=== PATIENT | female | born 1985 | race Caucasian/White ===

== ENCOUNTER 2018-11-23 20:52 | Emergency (ER) | payer OTHER, SELFPAY ==
[2018-11-23 20:53] VITALS: BP 145/90; PULSE 123; RESP 18; TEMP 37.7; O2SAT 96; BMI 33.5
--- NOTE | 2018-11-23 21:13 | ED.VISSUMM ---
- ER Visit Summary Date of Service: 11/23/18 Chief Complaint: [] Fever body aches cough flu symptoms History of Present Illness: The patient is a 33 F [] patient describes and reports by her history flu symptoms consisting of fever body aches and cough cough is generally dry nonproductive she had fevers that have been up and down, she is able to eat and drink slight sore throat her children have URI GI symptoms, she has no other past history of the hypothyroidism normal bowel habits and bladder habits except for some constipation denies presents today because the persistence of the fever and body aches Physical Examination: [] Is 99.9 she is in no distress complaining of whole body pain and aches, did not have flu vaccination this year General, no distress resting comfortably HEENT is generally unremarkable The neck is supple no adenopathy Cardiovascular, regular rate and rhythm Lungs, clear bilateral Abdomen, soft nontender Extremities, no clubbing cyanosis or edema Neurologic, awake alert answering questions appropriately moving all 4 extremities [place] she looks well she has no cough now her oral cavity and throat are normal she is eating and drinking well she appears well-hydrated I explained to her and her the above therapy generally consists of fever management aerosols fluids at home etc. which she is been taking she agrees to that plan so she is treated with DuoNeb, Toradol Tylenol will provide her with a Proventil inhaler here to use and to take home with her and to follow with her doctors the next few days continue instructions on flu sheet Test Results: [] Emergency Department Course and Treatment: [] Treatment Plan: [] Disposition: [] Home stable Impression: [] Flu type symptoms fever body aches harsh cough This note was generated with [employer] [place] dictation software. It may contain incorrect words, spelling, and punctuation that were not noted in review of the chart prior to signing ED Disposition - Plan for ED Patient: Chief Complaint: General Illness Referrals: Alea Galarza NP-C [Primary Care Provider] -
--- NOTE | 2018-11-23 21:15 | ED.DEP ---
ED Disposition - Plan for ED Patient: Chief Complaint: General Illness Instructions: ED Flu Referrals: Alea Galarza NP-C [Primary Care Provider] -
--- NOTE | 2018-11-23 21:16 | ED.DEP ---
ED Disposition - Plan for ED Patient: Chief Complaint: General Illness Instructions: ED Flu Referrals: Alea Galarza NP-C [Primary Care Provider] -
[2018-11-23] MEDS: Ipratropium/Albuterol Sulfate 3 ML AMPUL.NEB INHALATION (21:21)
[2018-11-23 21:25] VITALS: PULSE 106; RESP 16
[2018-11-23] MEDS: Acetaminophen 500 MG Tablet 1000 MG PO (21:30)
[2018-11-23] MEDS: Ketorolac 60 MG/2 ML Vial IM (21:30)
[2018-11-23 21:58] VITALS: PULSE 112; RESP 18; O2SAT 94
== END 2018-11-23 21:59 | disposition home or self-care (01) ==
LOC: ED 21:16
PROVIDERS: Emergency Provider Emergency Medicine; Family Provider Nurse Practitioner Family; PCP Nurse Practitioner Family
DX: R50.9 Fever, unspecified (principal); R05 Cough; M79.18 Myalgia, other site; E03.9 Hypothyroidism, unspecified; Z79.899 Other long term (current) drug therapy
CPT/HCPCS: 94640; 96372; 99282

== ENCOUNTER → 2020-05-04 | Outpatient (CLI) | payer OTHER, SELFPAY ==
[2020-05-04 14:09] VITALS: BMI 33.5
[2020-05-04 17:00] LABS: Basophil# 0.04 X10^3/uL; Basophil% 0.7 % (0-1); Eosinophil# 0.28 X10^3/uL; Hematocrit 42.2 % (37-47); Hemoglobin 13.8 g/dL (12.0-15.0); Lymphocyte % 32.2 % (19-41); Mean Corp Hgb Conc 32.7 g/dL (32-36); Mean Corpuscular Hgb 29.7 pg (27.0-32.0); Mean Corpuscular Volume 90.8 fL (81-99); Mean Platelet Vol. 11.2 fl (6.2-12.0); Monocyte# 0.46 X10^3/uL; Monocyte% 8.2 % (0-10); NRBC Flagged by Analyzer 0 % (0-5); Neutrophil # 3.01 X10^3/uL (2.7-7.7); Neutrophil % 53.9 % (47-70); Platelet Count 308 K/mm3 (150-450); RBC Distribution Width CV 13.1 % (11.6-14.6); RBC Distribution Width SD 42.7 fl (35.1-43.9); Red Blood Count 4.65 M/mm3 (4.2-5.4); White Blood Count 5.6 K/mm3 (4.4-11.0)
[2020-05-04 17:21] LABS: ALB/GLOB Ratio 0.9 RATIO (0.9-2.4); AST(SGOT) 16 U/L (15-37); Alanine Aminotransfer ALT/SGPT 24 U/L (13-56); Albumin, Serum 3.7 g/dL (3.2-5.0); Alkaline Phosphatase 78 U/L (45-117); Anion Gap 3 (5-15); BUN 11 mg/dL (7-18); BUN/Creat Ratio 11.5 RATIO (10-20); Calcium,Total 8.6 mg/dL (8.5-10.1); Chloride 108 mmol/L (98-107); Cholesterol 226 mg/dL (200); Creatinine, Serum 0.95 mg/dL (0.55-1.02); EST Glomerular Filtration Rate 71 mL/min (>60); Est Glom Filt Rate - Afr Amer 86 mL/min (>60); Globulin 4.2 g/dL (2.2-4.2); Glucose 83 mg/dL (74-106); High Density Lipoprotein 63 mg/dL; Magnesium 2.1 mg/dL (1.6-2.6); Potassium 4.2 mmol/L (3.5-5.1); Protein, Total 7.9 g/dL (6.4-8.2); Sodium Level 139 mmol/L (136-145); T4 Free Direct 0.75 ng/dL (0.76-1.46); Thyroid Stim Hormone (TSH) 2.38 uIU/mL (0.358-3.74); Triglycerides 115 mg/dL; Very Low Density Lipoprotein 23 mg/dL (5-40)
== END | disposition home or self-care (01) ==
LOC: BIMLAB 14:57
PROVIDERS: PCP Internal Medicine; Referring Provider Internal Medicine; Visit Provider Internal Medicine
DX: E03.9 Hypothyroidism, unspecified (principal); I49.9 Cardiac arrhythmia, unspecified; E66.9 Obesity, unspecified
CPT/HCPCS: 36415; 80053; 80061; 83735; 84439; 84443; 84482; 85025

== ENCOUNTER → 2020-05-24 | Outpatient (CLI) | payer OTHER, SELFPAY ==
[2020-05-04 14:09] VITALS: BMI 33.5
--- NOTE | 2020-05-24 11:37 | EKG12_ITS ---
Test Reason : 07489 Blood Pressure : / mmHG Vent. Rate : 073 BPM Atrial Rate : 073 BPM P-R Int : 138 ms QRS Dur : 080 ms QT Int : 388 ms P-R-T Axes : 035 064 038 degrees QTc Int : 427 ms Normal sinus rhythm Normal ECG Confirmed by HEATHER LEON ([id number]), food editor KARINA HIDALGO ([id number]) on 05/30/2020 8:26:15 AM Referred By: Juan Carlos Marcus Confirmed By:HEATHER LEON
== END | disposition home or self-care (01) ==
PROVIDERS: PCP Internal Medicine; Referring Provider Internal Medicine; Visit Provider Internal Medicine
DX: I49.9 Cardiac arrhythmia, unspecified (principal)
CPT/HCPCS: 93005

== ENCOUNTER → 2020-06-14 | Outpatient (CLI) | payer OTHER, SELFPAY ==
[2020-05-04 14:09] VITALS: BMI 33.5
== END | disposition home or self-care (01) ==
LOC: PSN 10:39
PROVIDERS: PCP Internal Medicine; Referring Provider Internal Medicine; Visit Provider Internal Medicine
DX: I49.9 Cardiac arrhythmia, unspecified (principal)
CPT/HCPCS: 93225; 93226

== ENCOUNTER → 2020-09-21 | Outpatient (CLI) | payer OTHER, SELFPAY ==
[2020-09-06 11:02] VITALS: BMI 35.9
--- NOTE | 2020-09-21 09:44 | ECHOD_ITS ---
Reason For Study: AFIB Procedure This was a 2D Doppler, Color Flow transthoracic echocardiogram. Exam performed in department. Left Ventricle Normal LV size. The estimated ejection fraction is 60 %. No evidence for diastolic dysfunction. No regional wall motion abnormalities noted. Right Ventricle Normal RV size. Normal systolic function. Atria Normal left atrium. Normal right atrium. No doppler evidence for ASD. Mitral Valve There is no mitral valve stenosis. No mitral valve insufficiency. Tricuspid Valve There is no tricuspid stenosis. Trivial tricuspid valve insufficiency. Pulmonary artery systolic pressure is 25 mmHg. Aortic Valve There is no aortic stenosis. No aortic valve insufficiency. Pulmonic Valve There is no pulmonic valvular stenosis. No pulmonic valve insufficiency. Great Vessels Normal aortic root. Pericardium/Pleural No pericardial effusion. MMode/2D Measurements & Calculations LVIDd: 4.0 cm IVSd: 0.87 cm Ao root diam: 3.1 cm LVIDs: 2.7 cm LVPWd: 1.00 cm FS: 33.4 % LAV(MOD-bp): 39.4 ml LA A4 area: 14.4 cm2 LA dimension(2D): 3.4 cm LAV(MOD-bp) Indexed: 19.9 ml/m2 LAV(MOD-sp2): 43.1 ml LAV(MOD-sp4): 35.2 ml RA A4 area: 11.7 cm2 Time Measurements MV dec time: 0.16 sec Doppler Measurements & Calculations MV E max harsha: 100.6 cm/sec Lat Peak E' Harsha: 17.6 cm/sec Med Peak E' Harsha: 11.9 cm/sec MV A max harsha: 64.4 cm/sec E/E' lat: 5.7 E/E' med: 8.5 MV E/A: 1.6 Ao V2 max: 133.8 cm/sec LV V1 max: 100.1 cm/sec PA V2 max: 106.7 cm/sec Ao max P.2 mmHg LV V1 max P.0 mmHg TR max harsha: 226.1 cm/sec TR max P.5 mmHg Interpretation Summary The estimated ejection fraction is 60 %. No evidence for diastolic dysfunction. Trivial tricuspid valve insufficiency. Ordering Physician: Raad Munguia Referring Physician: JOSE BELL Performed By: Luz Elena Willis RDCS, RVT
== END | disposition home or self-care (01) ==
LOC: CVS 09:44
PROVIDERS: PCP Internal Medicine; Referring Provider Internal Medicine Cardiovascular Disease; Visit Provider Internal Medicine Cardiovascular Disease
DX: I48.91 Unspecified atrial fibrillation (principal); I48.92 Unspecified atrial flutter; R00.2 Palpitations
CPT/HCPCS: 93306

== ENCOUNTER → 2020-11-07 15:41 | Outpatient (CLI) | payer OTHER, SELFPAY ==
[2020-11-07 14:29] VITALS: BMI 36.3
== END ==
PROVIDERS: PCP Internal Medicine; Referring Provider Specialist; Visit Provider Specialist
DX: R00.2 Palpitations (principal); R07.9 Chest pain, unspecified; R06.02 Shortness of breath
CPT/HCPCS: 36415

== ENCOUNTER → 2022-06-27 | Outpatient (CLI) | payer OTHER, SELFPAY ==
[2022-06-27 15:01] LABS: Absolute Lymphocyte Count 1.93 X10^3/uL (0.83-4.51); Absolute Neutrophil Count 2.4 X10^3/uL (2.0-7.7); Basophil# 0.02 X10^3/uL; Basophil% 0.4 % (0-1); Eosinophil# 0.13 X10^3/uL; Eosinophils% 2.6 % (0-5); Hematocrit 36.2 % (37-47); Hemoglobin 11.5 g/dL (12.0-15.0); Lymphocyte # 1.93 X10^3/ul (0.83-4.51); Lymphocyte % 38.3 % (19-41); Mean Corp Hgb Conc 31.8 g/dL (32-36); Mean Corpuscular Hgb 26.9 pg (27.0-32.0); Mean Corpuscular Volume 84.6 fL (81-99); Mean Platelet Vol. 11.2 fl (6.2-12.0); Monocyte# 0.52 X10^3/uL; Monocyte% 10.3 % (0-10); NRBC Flagged by Analyzer 0 % (0-5); Neutrophil # 2.43 X10^3/uL (2.7-7.7); Neutrophil % 48.2 % (47-70); Platelet Count 278 K/mm3 (150-450); RBC Distribution Width CV 15.3 % (11.6-14.6); RBC Distribution Width SD 46.3 fl (35.1-43.9); Red Blood Count 4.28 M/mm3 (4.2-5.4)
[2022-06-27 15:22] LABS: Insulin 5.3 mU/L (2.6-37.6)
[2022-06-27 15:43] LABS: ALB/GLOB Ratio 0.9 RATIO (0.9-2.4); AST(SGOT) 12 U/L (15-37); Alanine Aminotransfer ALT/SGPT 14 U/L (13-56); Albumin, Serum 3.7 g/dL (3.2-5.0); Alkaline Phosphatase 70 U/L (45-117); Anion Gap 6 (5-15); BUN 8 mg/dL (7-18); BUN/Creat Ratio 8.3 RATIO (10-20); Calcium,Total 8.8 mg/dL (8.5-10.1); Chloride 106 mmol/L (98-107); Cholesterol 210 mg/dL (200); Creatinine, Serum 0.96 mg/dL (0.55-1.02); EST Glomerular Filtration Rate 69 mL/min (>60); Est Glom Filt Rate - Afr Amer 84 mL/min (>60); Free T3 3.8 pg/mL (2.18-3.98); Globulin 4.2 g/dL (2.2-4.2); Glucose 81 mg/dL (74-106); High Density Lipoprotein 55 mg/dL; Potassium 3.5 mmol/L (3.5-5.1); Protein, Total 7.9 g/dL (6.4-8.2); Sodium Level 137 mmol/L (136-145); T4 Free Direct 0.87 ng/dL (0.76-1.46); Thyroid Stim Hormone (TSH) 2.62 uIU/mL (0.358-3.74); Triglycerides 78 mg/dL; Very Low Density Lipoprotein 16 mg/dL (5-40)
== END | disposition home or self-care (01) ==
LOC: LAB 13:35
PROVIDERS: PCP Internal Medicine; Visit Provider Internal Medicine
DX: E66.9 Obesity, unspecified (principal); E03.9 Hypothyroidism, unspecified; F41.8 Other specified anxiety disorders; E88.81 Metabolic syndrome and other insulin resistance
CPT/HCPCS: 36415; 80053; 80061; 83525; 84439; 84443; 84481; 85025

== ENCOUNTER → 2022-08-08 | Outpatient (CLI) | payer OTHER, SELFPAY ==
[2022-08-08 12:18] LABS: Vitamin B12 419 pg/mL (211-911)
[2022-08-08 12:27] LABS: Iron 28 ug/dL (50-170); Iron Binding Capacity,Total 431 ug/dL (250-450); PERCENT IRON SATURATION 6.5 % (15.0-55.0)
== END | disposition home or self-care (01) ==
LOC: LAB 10:29
PROVIDERS: PCP Internal Medicine; Referring Provider Internal Medicine; Visit Provider Internal Medicine
DX: D64.9 Anemia, unspecified (principal)
CPT/HCPCS: 36415; 82607; 82746; 83540; 83550

== ENCOUNTER → 2023-07-30 | Outpatient (CLI) | payer BC, SELFPAY ==
[2023-07-30 08:42] LABS: Absolute Lymphocyte Count 1.55 X10^3/uL (0.83-4.51); Absolute Neutrophil Count 2.2 X10^3/uL (2.0-7.7); Basophil# 0.03 X10^3/uL; Basophil% 0.7 % (0-1); Eosinophils% 4.4 % (0-5); Hematocrit 40.8 % (37-47); Lymphocyte # 1.55 X10^3/ul (0.83-4.51); Lymphocyte % 34.4 % (19-41); Mean Corp Hgb Conc 31.9 g/dL (32-36); Mean Corpuscular Hgb 28.4 pg (27.0-32.0); Mean Corpuscular Volume 89.3 fL (81-99); Mean Platelet Vol. 10.7 fl (6.2-12.0); Monocyte# 0.52 X10^3/uL; Monocyte% 11.6 % (0-10); NRBC Flagged by Analyzer 0 % (0-5); Neutrophil # 2.19 X10^3/uL (2.7-7.7); Neutrophil % 48.7 % (47-70); Platelet Count 282 K/mm3 (150-450); RBC Distribution Width CV 14.4 % (11.6-14.6); RBC Distribution Width SD 47.3 fl (35.1-43.9); Red Blood Count 4.57 M/mm3 (4.2-5.4); White Blood Count 4.5 K/mm3 (4.4-11.0)
[2023-07-30 09:14] LABS: Progesterone Level 6.56 ng/mL (See Comment); Vitamin D,25 Hydroxy 49.4 ng/mL
[2023-07-30 10:17] LABS: ALB/GLOB Ratio 0.9 RATIO (0.9-2.4); AST(SGOT) 24 U/L (15-37); Alanine Aminotransfer ALT/SGPT 41 U/L (13-56); Albumin, Serum 3.6 g/dL (3.2-5.0); Alkaline Phosphatase 81 U/L (45-117); Anion Gap 5 (5-15); BUN 10 mg/dL (7-18); BUN/Creat Ratio 10.7 RATIO (10-20); Calcium,Total 8.8 mg/dL (8.5-10.1); Chloride 106 mmol/L (98-107); Creatinine, Serum 0.93 mg/dL (0.55-1.02); EST Glomerular Filtration Rate 72 mL/min (>60); Est Glom Filt Rate - Afr Amer 87 mL/min (>60); Free T3 4.3 pg/mL (2.18-3.98); Glucose 97 mg/dL (74-106); Protein, Total 7.6 g/dL (6.4-8.2); Sodium Level 138 mmol/L (136-145); T4 Free Direct 0.77 ng/dL (0.76-1.46); Thyroid Stim Hormone (TSH) 7.21 uIU/mL (0.358-3.74)
[2023-07-31 04:08] LABS: Thyroid Peroxidase AB 136 IU/mL (0-34)
== END | disposition home or self-care (01) ==
PROVIDERS: PCP Internal Medicine; Referring Provider Preventive Medicine Public Health & General Preventive Medicine; Visit Provider Preventive Medicine Public Health & General Preventive Medicine
DX: E03.9 Hypothyroidism, unspecified (principal); E55.9 Vitamin D deficiency, unspecified; N95.1 Menopausal and female climacteric states
CPT/HCPCS: 36415; 80053; 82306; 82533; 82670; 84144; 84403; 84439; 84443; 84481; 85025; 86376

== ENCOUNTER → 2023-11-06 | Outpatient (CLI) | payer BC, SELFPAY ==
[2023-11-06 10:10] LABS: Absolute Lymphocyte Count 1.49 X10^3/uL (0.83-4.51); Absolute Neutrophil Count 2.6 X10^3/uL (2.0-7.7); Basophil# 0.03 X10^3/uL; Basophil% 0.6 % (0-1); Eosinophil# 0.15 X10^3/uL; Eosinophils% 3.2 % (0-5); Hematocrit 38.7 % (37-47); Hemoglobin 12.3 g/dL (12.0-15.0); Lymphocyte # 1.49 X10^3/ul (0.83-4.51); Lymphocyte % 31.6 % (19-41); Mean Corp Hgb Conc 31.8 g/dL (32-36); Mean Corpuscular Hgb 27.7 pg (27.0-32.0); Mean Corpuscular Volume 87.2 fL (81-99); Mean Platelet Vol. 10.3 fl (6.2-12.0); Monocyte# 0.48 X10^3/uL; Monocyte% 10.2 % (0-10); NRBC Flagged by Analyzer 0 % (0-5); Neutrophil # 2.56 X10^3/uL (2.7-7.7); Neutrophil % 54.2 % (47-70); Platelet Count 273 K/mm3 (150-450); RBC Distribution Width CV 14.8 % (11.6-14.6); RBC Distribution Width SD 47.4 fl (35.1-43.9); Red Blood Count 4.44 M/mm3 (4.2-5.4); White Blood Count 4.7 K/mm3 (4.4-11.0)
[2023-11-06 10:37] LABS: Vitamin B12 464 pg/mL (211-911); Vitamin D,25 Hydroxy 79.2 ng/mL
[2023-11-06 10:47] LABS: ALB/GLOB Ratio 0.8 RATIO (0.9-2.4); AST(SGOT) 24 U/L (15-37); Alanine Aminotransfer ALT/SGPT 32 U/L (13-56); Albumin, Serum 3.4 g/dL (3.2-5.0); Alkaline Phosphatase 66 U/L (45-117); Anion Gap 4 (5-15); BUN 11 mg/dL (7-18); BUN/Creat Ratio 13.3 RATIO (10-20); Calcium,Total 8.5 mg/dL (8.5-10.1); Chloride 107 mmol/L (98-107); Creatinine, Serum 0.83 mg/dL (0.55-1.02); EST Glomerular Filtration Rate 82 mL/min (>60); Est Glom Filt Rate - Afr Amer 99 mL/min (>60); Free T3 4.3 pg/mL (2.18-3.98); Globulin 4.1 g/dL (2.2-4.2); Glucose 93 mg/dL (74-106); Magnesium 2.1 mg/dL (1.6-2.6); Potassium 3.8 mmol/L (3.5-5.1); Protein, Total 7.5 g/dL (6.4-8.2); Sodium Level 137 mmol/L (136-145); T4 Free Direct 0.82 ng/dL (0.76-1.46); Thyroid Stim Hormone (TSH) 3.06 uIU/mL (0.358-3.74)
[2023-11-07 08:11] LABS: Thyroid Peroxidase AB 112 IU/mL (0-34)
== END | disposition home or self-care (01) ==
PROVIDERS: PCP Internal Medicine; Referring Provider Preventive Medicine Public Health & General Preventive Medicine; Visit Provider Preventive Medicine Public Health & General Preventive Medicine
DX: E03.9 Hypothyroidism, unspecified (principal); E53.8 Deficiency of other specified B group vitamins; E55.9 Vitamin D deficiency, unspecified; E61.1 Iron deficiency; E61.2 Magnesium deficiency; E61.3 Manganese deficiency; E56.1 Deficiency of vitamin K
CPT/HCPCS: 36415; 80053; 82306; 82607; 83735; 84439; 84443; 84481; 85025; 86376

== ENCOUNTER → 2023-11-20 | Outpatient (CLI) | payer BC, SELFPAY ==
--- NOTE | 2023-11-20 14:42 | US_ITS ---
EXAM: US SOFT TISSUES HEAD AND NECK, THYROID CLINICAL INDICATION: Thyroid nodule TECHNIQUE: Greyscale and color doppler imaging was performed of the thyroid gland. COMPARISON: No relevant prior studies available. FINDINGS: LEFT THYROID LOBE: The left thyroid lobe measures 5.2 x 1.6 x 1.4 cm and is diffusely heterogenous. Homogeneous echotexture with normal vascularity. No thyroid nodules are present. RIGHT THYROID LOBE: The right thyroid lobe measures 5.4 x 1.7 x 1.7 cm and is diffusely heterogenous. Homogeneous echotexture with normal vascularity. No thyroid nodules are present. ISTHMUS: The thyroid isthmus measures 0.4 cm. No thyroid nodules are present. LYMPH NODES: Normal central neck lymph nodes are identified. US/Thyroid IMPRESSION: No distinct thyroid nodules. Heterogenous thyroid and thyromegaly. Correlate clinically for evidence of thyroiditis. Electronically Signed: Jone Keane DO at 23:49 EST ,
== END | disposition home or self-care (01) ==
PROVIDERS: PCP Internal Medicine; Referring Provider Internal Medicine; Visit Provider Internal Medicine
DX: E03.9 Hypothyroidism, unspecified (principal); E06.3 Autoimmune thyroiditis
CPT/HCPCS: 76536

== ENCOUNTER → 2025-09-19 | Outpatient (CLI) | payer BC, SELFPAY ==
[2025-09-19 16:42] LABS: Hematocrit 39.8 % (37-47); Hemoglobin 12.8 g/dL (12.0-15.0); Immature Granulocytes Count 0.020 X10^3/uL (0.0-0.0); Mean Corp Hgb Conc 32.2 g/dL (32-36); Mean Corpuscular Volume 84.9 fL (81-99); Mean Platelet Vol. 10.7 fl (6.2-12.0); NRBC Flagged by Analyzer 0 % (0-5); Platelet Count 276 K/mm3 (150-450); RBC Distribution Width CV 15.2 % (11.6-14.6); RBC Distribution Width SD 47.0 fl (35.1-43.9); Red Blood Count 4.69 M/mm3 (4.2-5.4); White Blood Count 6.7 K/mm3 (4.4-11.0)
== END | disposition home or self-care (01) ==
LOC: LAB 16:03
PROVIDERS: PCP Internal Medicine; Referring Provider Obstetrics & Gynecology; Visit Provider Obstetrics & Gynecology
DX: N93.9 Abnormal uterine and vaginal bleeding, unspecified (principal)
CPT/HCPCS: 36415; 84443; 85025

== ENCOUNTER → 2025-10-05 | Outpatient (CLI) | payer BC, SELFPAY ==
--- NOTE | 2025-10-05 13:15 | EMB_PTH ---
PATIENT: GABRIELLA MADSEN LOC: [facility]#:[id number] AGE/SX: 40/F ROOM: RE10/05/[address]: Dr. Estephania Frost MD : 1985 BED: DIS: 10/05/2025 SPEC #: [id number] RECD: 10/05/25 16:55 STATUS: JESS REQ #: [id number] CMAERON: 10/05/25 13:[address]: Estephania Frost DEPT: SURGICAL PATHOLOGY RECD BY: Harris Winkler ENTERED: 10/06/25 11:37 SP TYPE: ENDOM BX/C NANO DR: Dr. Johanne Davidson MD Tissues: A - Endometrium, NOS Procedures: Surgery Specimen Level IV HEADER OPERATION: Endometrial biopsy PRE-OP DIAGNOSIS: Abnormal uterine bleeding TISSUE SUBMITTED: A- Endometrial tissue MICROSCOPIC DIAGNOSIS A. Endometrium, biopsy: - Secretory endometrium. MICROSCOPIC DESCRIPTION Slides are reviewed. GROSS DESCRIPTION A. Received in formalin labeled the patient's name and date of is a 2.4 x 1.3 x 0.2 cm aggregate of romero-pink cylindrical tissue fragments. Entirely submitted in 1 cassette. [place] 10/06/2025PT:[id number]
--- NOTE | 2025-10-05 14:06 | US_ITS ---
PROCEDURE: PELVIC W/ TRANSVAGINAL 10/05/2025 REASON FOR EXAM: ABNORMAL UTERINE BLEEDING TECHNIQUE: Procedure Code: [id number] Modality: US Procedure: PELVIC W/ TRANSVAGINAL FINDINGS: Uterus measures 10.5 x 6.7 x 5.1 cm. It is retroflexed position. No uterine fibroids are noted. Endometrial stripe measures 10 mm. It is hyperechoic. Nabothian cysts are noted. Right ovary measures 3.7 x 1.8 x 1.8 cm and left ovary measures 4.6 x 2.8 x 2.5 cm. There is normal bilateral symmetrical blood flow within bilateral ovaries. Left ovarian hemorrhagic/corpus luteal cyst measuring 2.3 x 2.2 x 2.1 cm. No significant free fluid within the cul-de-sac. US/Pelvic w/ Transvaginal IMPRESSION: Left ovarian hemorrhagic/corpus luteal cyst measuring 2.3 x 2.2 x 2.1 cm. No a cute ovarian torsion during this exam. Thickened endometrium with likely blood product within Reading Location: [id number]
[2025-10-11 16:09] LABS: HPV APTIMA, High Risk Negative (Negative)
== END | disposition home or self-care (01) ==
PROVIDERS: PCP Internal Medicine; Referring Provider Obstetrics & Gynecology; Visit Provider Obstetrics & Gynecology
DX: N93.9 Abnormal uterine and vaginal bleeding, unspecified (principal)
CPT/HCPCS: 76830; 76856; 87624; 88175; 88305; G0145

== ENCOUNTER 2025-11-03 06:03 | Day surgery (SDC) | payer BC, SELFPAY ==
--- NOTE | 2025-10-20 13:35 | PAT.ANE_ITS ---
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 When Was Last Pacemaker Check QUESTION #4 FULL TEXT: You/Your Family Experience fever (hyperthermia) with Anesthesia Last Oral Intake Last Oral intake: Last Oral Intake NPO since Meds taken in AM with sips of water? 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 Female Yes 10/20/25 09:58 HX of Motion Sickness Yes 10/20/25 09:58 HX of N/V After Surgery Yes 10/20/25 09:58 Non-Smoker Yes 10/20/25 09:58 Duration of Surgery greater Yes 10/20/25 09:58 than 60 minutes Number of Risk Factors 5 10/20/25 09:58 PONV Score Severe Risk 10/20/25 09:58 Height & Weight Height & Weight: Anesthesia: Height & Weight Height 5 ft 4 in 09/19/25 14:26 Respiratory Assessment Respiratory Assessment - adjunct communications faculty member: Respiratory Tract Infection Hx - adjunct communications faculty member Hx Respiratory Tract Infection No 10/20/25 09:58 STOP Sleep Apnea STOP Sleep Apnea - adjunct communications faculty member: STOP Sleep Apnea - adjunct communications faculty member Hx Hypertension No 10/20/25 09:58 Hx Sleep Apnea No 10/20/25 09:58 CPAP BIPAP Do you snore loudly (louder No 10/20/25 09:58 than talking or can be heard Do you often feel tired/ No 10/20/25 09:58 fatigued/ sleepy during daytime? Has anyone observed you stop No 10/20/25 09:58 breathing during sleep? STOP Results Negative 10/20/25 09:58 QUESTION #5 FULL TEXT : Do you snore loudly (louder than talking or can be heard through closed doors)? 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 Specify any problems Hx of Preganancy in last 3 No 10/20/25 09:58 Months Nurse Filling Out Transfusion JZOLLINGE 10/20/25 09:58 & Questions: Date: 10/20/25 10/20/25 09:58 Time: 09:59 10/20/25 09:58 Patient unable to answer at this time (ie. 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: /Reproductive Hx- adjunct communications faculty member Hx Now No 10/20/25 09:58 Gestational Age (in weeks): EDC: Hx Hx Para Hx Section SAB No 10/20/25 09:58 Does the father of the baby or his family experience fever w Father of the baby Malignant Hypertension history comment [facility] Medical History (Updated 10/20/25 @ 09:58 by Shara Medrano) Wears contact lenses Wears glasses Dietary restriction Non-smoker History of edema SVT (supraventricular tachycardia) Obesity (BMI 30.0-34.9) Hypothyroidism Venous insufficiency of both lower extremities Vitamin D deficiency Abnormal uterine bleeding [place] sclerosus et atrophicus Depression with anxiety Anxiety and depression Thyroid disorder Home Medications ?Medication ?Instructions ?Recorded ?Last Taken ?Type thyroid (pork) 15 mg tablet 15 mg PO DAILY #60 tabs Unknown Rx ([facility] Thyroid) NAD+ 100 mg subcut .3x week 10/20 Unknown History primal salcedo 1 tab PO BID 10/20/25 Unknow n History testosterone cypionate 100 mg/mL 4 mg IM QWEEK 5 Unknown History intramuscular oil Allergy/AdvReac Type Severity Reaction Status Date / Time Sulfa (Sulfonamide Allergy Mild rash , Verified 10/20/25 09:50 Antibiotics) short of breath Family History Mother Hypertension Histoplasmosis CVA (cerebral vascular accident) Depression Anxiety Hyperlipemia Father Heart disease Diabetes Thyroid disorder Brother Thyroid disorder Grandfather Aneurysm Heart disease Myocardial infarction Grandmother Hyperlipemia Thyroid disorder Arthritis Surgical History H/O hand surgery delivery delivered Social History number of children: 2 current occupational status: unemployed current occupation: [employer] Smoking Status: Never smoker alcohol intake: current alcohol intake frequency: holidays/special occasions only substance use type: does not use caffeine: Yes what type of physical activity do you participate in: running and weight train ing frequency: 3-4 times per week seatbelt use: always do you feel safe at home: Yes additional social history: [employer]: Pertinent Findings Pertinent Findings EKG Perinent findings: Sinus rhythm. 78 bpm. Echo (EF%) pertinent findings: 09/19/2020. EF 60%. Consult pertinent findings: Cardiology 08/08/2021. SVT. Patient had been referred to electrophysiology. At EP study patient had catheter ablation of slow pathway. EP follow-up 01/10/2025. For SVT. Continue resuming metoprolol or diltiazem. Recommendation Anesthesia Recommendation Anesthesia recommendation: OPTIMIZED for anesthesia
[2025-11-03] VITALS (18 sets, daily range): BP systolic 112–137; BP diastolic 70–98; PULSE 65–102; RESP 9–20; TEMP 36.6–36.9; O2SAT 94–100; BMI 34.5
--- OUTSIDE RECORDS SUMMARY | 2025-11-03 06:07 | XMS RPT_ITS | CCD ---
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 Jose Bell Primary Care Provider Dr. Jose Bell Attending Provider [phone] Dr. Jose Bell Referring Provider [phone] Jose Bell MD Primary Care Provider [phone] Emmy Anguiano MD Unavailable EMMY ANGUIANO Attending Unavailable JOSE BELL Referring Unavailable JOSE BELL Primary Care Unavailable JOSE BELL Primary Care Unavailable EMMY ANGUIANO Referring Unavailable Dr. Jose Bell MD Primary Care Physician Dr. Jose Bell MD Referring Provider Dr. Estephania Frost MD Attending Physician Dr. Estephaina Frost MD Referring Provider [phone] Jose Bell Referring Unavailable Jose Bell Primary Care Unavailable Estephania Frost Attending Unavailable Jose Bell Primary Care Unavailable Estephania Frost Referring Unavailable Estephania Frost Attending Unavailable Jose Bell Primary Care Unavailable Estephania Frost Attending Unavailable Estephania Frost Attending Unavailable Jose Bell Primary Care Unavailable Estephania Frost Referring Unavailable Estephania Frost Attending Unavailable Jose Bell Referring Unavailable Jose Bell Primary Care Unavailable Allergies Allergy Classification Reported Allergen(s) Allergy Type Date of Onset Reaction(s) Facility (6 sources) Sulfonamides (Antibiotic); Translations: [SULFA (SULFONAMIDE ANTIBIOTICS)] Drug Allergy 1 Rash, Swelling [facility] (5 sources) Sulfonamides (Antibiotic) Allergy to substance 2 rash , short of breath [facility] (1 source) Sulfonamides (Antibiotic) Drug allergy (disorder) 5 [facility] Repository Medications Current Medications Medication Drug Class(es) Dates Sig (Normalized) Sig (Original) Multivitamin preparation (5 sources) Start: 04-26-2020 take 1 capsule by mouth once daily multivitamin Active 1 CAP PO DAILY April 25, 2020 11:00pm Start: 04-26-2020 take 1 capsule by mo uth once daily multivitamin Active 1 CAP PO DAILY April 26, 2020 12:00am Thyroid (Pork) (3 sources) Start: 07-31-2023 take 0.5 mg by mouth once daily Thyroid (Pork) Active 90 MG PO daily July 31, 2023 11:40am Please note: This is to be filled with armor thyroid brand name. Patient has intolerance to generic thyroid pork. Fill, dispense as written. Diagnosis: Hypothyroidism. Take with 12.5 mg tablet. Start: 07-31-2023 take 0.5 mg by mouth once daily Thyroid (Pork) Active 90 MG PO daily July 31, 2023 12:40pm Please note: This is to be filled with armor thyroid brand name. Patient has intolerance to generic thyroid pork. Fill, dispense as written. Diagnosis: Hypothyroidism. Take with 12.5 mg tablet. Thyroid (Pork) ([place] Thyro id) 15 mg tablet (3 sources) Start: 07-31-2023 Thyroid (Pork) ([place] Thyroid) 15 mg tablet Active 15 MG PO DAILY July 30, 2023 11:00pm Take 1/2 tab (7.5 mg) with 90 mg tab daily. BELLO. Fill with name brand only. Start: 07-31-2023 Thyroid (Pork) ([place] Thyroid) 15 mg tablet Active 15 MG PO DAILY July 31, 2023 12:00am Take 1/2 tab (7.5 mg) with 90 mg tab daily. BELLO. Fill with name brand only. Completed/Discontinued Medications Medication Drug Class(es) Dates Sig (Normalized) Sig (Original) Ascorbic Acid (15 sources) Vitamin C Start: 06-13-2022 End: 09-19-2025 vitamin C Discontinued PO June 12, 2022 11:00pm September 19, 2025 1:29pm Start: 06-13-2022 vitamin C Acti ve PO June 12, 2022 11:00pm Start: 06-13-2022 vitamin C Acti ve PO June 13, 2022 12:00am Start: 04-26-2020 End: 08-27-2021 take 1 capsule by mouth once daily Ascorbic Acid (Vitamin C) 500 mg capsule, extended release Discontinued 500 mg PO DAILY April 25, 2020 11:00pm August 27, 2021 1:38pm take 500 mg by mouth once daily Ascorbic Acid 500 mg chew Take 500 mg by mouth once daily. Active Comment on above: Take 500 mg by mouth once daily. cholecalciferol 0.025 mg oral capsule (8 sources) Vitamin D Start: 04-26-20 End: 08-27-20 21 take 1 capsule by mouth once daily Cholecalciferol (Vitamin D3) (Vitamin D3) 25 mcg (1,000 unit) capsule Discontinued 25 ug PO DAILY April 25, 2020 11:00pm August 27, 2021 1:38pm Start: 03-25-2017 End: 01-10-2025 take 1 capsule by mouth once daily Cholecalciferol, Vitamin D3, 2,000 unit cap Indications: Vitamin D deficiency Take 1 capsule by mouth once daily. 0 03/25/2017 01/10/2025 Discontinued (Other) Comment on above: Take 1 capsule by [facility] once daily. clobetasol propionate 0.5 mg/ml topical cream (20 sources) Corticosteroid Start: 06-13-2022 End: 09-19-2025 Clobetasol 0.05 % cream Discontinued 1 NMA TOPICAL DAILY as needed June 13, 2022 10:07am September 19, 2025 1:29pm Start: 08-27-2021 End: 06-13-2022 Clobetasol 0.05 % cream Disc ontinued 1 NMA TOPICAL DAILY 30 4 August 27, 2021 3:54pm June 13, 2022 10:09am Start: 08-27-2021 End: 06-13-2022 clobetasol (TEMOVATE) 0.05 % cream Apply to affected area once daily as needed (skin condition). 08/27/2021 Active Start: 05-18-2018 End: 04-26-2020 Clobetasol 0.05 % ointment D iscontinued 1 NMA TOPICAL AT BEDTIME 30 May 17, 2018 11:00pm April 26, 2020 1:53pm apply thin layer; massage gently into affected area Start: 05-18-2018 End: 04-26-2020 Clobetasol Discontinued 1 AP PLIC TOPICAL AT BEDTIME May 17, 2018 11:00pm April 26, 2020 1:53pm apply thin layer; massage gently into affected area Comment on above: Apply to affected ar ea once daily. Cod Liver Oil (6 sources) Start: 04-26-2020 End: 08-27-2021 codliver oil Discontinued PO 0 April 25, 2020 11:00pm August 27, 2021 1:38pm Start: 04-26-2020 End: 08-27-2021 codliver oil Discontinued PO April 25, 2020 11:00pm August 27, 2021 1:38pm Start: 04-26-2020 End: 08-27-2021 codliver oil Discontinued PO April 26, 2020 12:00am August 27, 2021 2:38pm D3 (6 sources) Start: 06-13-2022 End: 09-19-2025 D3 Discontinued PO May 11:00pm September 19, 2025 1:29pm Start: 06-13-2022 D3 Active PO J ezequiel 2021 11:00pm Start: 06-13-2022 D3 Active PO J ezequiel 2021 12:00am DOCOSAHEXANOIC ACID/EPA (FISH OIL ORAL) (2 sources) End: 01-10-2025 take 2 tablets by mouth once daily DOCOSAHEXANOIC ACID/EPA (FISH OIL ORAL) Take 2 tablets by mouth once daily. 01/10/2025 Discontinued (Other) take 2 tablets by mouth once ros ly DOCOSAHEXANOIC ACID/EPA (FISH OIL ORAL) Take 2 tablets by mouth once daily. 0 Active Comment on above: Take 2 tablets by mo ut once daily. Lactobacillus acidophilus (2 sources) End: 01-10-2025 LACTOBACILLUS ACIDOPHILUS (PROBIOTIC ORAL) Take by mouth once daily. 01/10/2025 Discontinued (Other) LACTOBACILLUS AC IDOPHILUS (PROBIOTIC ORAL) Take by mouth once daily. 0 Active Comment on above: Take by mouth once d aily. Lactobacillus Combination No.9 (Adult 50 Plus Probiotic) 4 billion cell capsule (6 sources) Start: 04-26-2020 End: 08-27-2021 Lactobacillus Combination No.9 (Adult 50 Plus Probiotic) 4 billion cell capsule Discontinued PO April 25, 2020 11:00pm August 27, 2021 1:38pm Start: 04-26-2020 End: 08-27-2021 Lactobacillus Combination No .9 (Adult 50 Plus Probiotic) 4 billion cell capsule Discontinued PO April 26, 2020 12:00am August 27, 2021 2:38pm 24 hr metoprolol succinate 25 mg extended release oral tablet (20 sources) beta-Adrenergic Juvencio Start: 09-07-2021 End: 01-10-2025 take 1 tablet by mouth three times daily as needed metoprolol succinate ER (TOPROL XL) 25 mg 24 hr tablet Take 25 mg by mouth three times daily as needed (tachycardia). 09/07/2021 01/10/2025 Discontinued (Other) Start: 02-02-2021 End: 06-13-2022 take 1 tablet by mouth once daily Metoprolol Succinate (Toprol Xl) 25 mg tablet extended release 24 hr Discontinued 25 mg PO DAILY 90 May 28, 2021 10:18am August 09, 2021 12:37pm Comment on above: Take 25 mg by mouth three times daily as needed (tachycardia). Multivitamin capsule (1 source) Start: 04-26-2020 End: 09-19-2025 Multivitamin capsule Discontinued 1 NMA PO DAILY April 25, 2020 11:00pm September 19, 2025 1:28pm Vmyrtqdwpeyaq-Etusoles-K utein (MULTIVITAMIN 50 PLUS) tab (2 sources) End: 01-10-2025 Multivitamins-Minerals- Lutein (MULTIVITAMIN 50 PLUS) tab Take 1 tablet by mouth once daily. 01/10/2025 Discontinued (Other) Multivitamins-Mi nerals-Lutein (MULTIVITAMIN 50 PLUS) tab Take 1 tablet by mouth once daily. 0 Active Comment on above: Take 1 tablet by katherine th once daily. Thyroid (Pork) ([place] Thyroid) 97.5 mg tablet (3 sources) Start: 07-30-2023 End: 07-31-2023 take 1 tablet by mouth once daily Thyroid (Pork) ([place] Thyroid) 97.5 mg tablet Discontinued 97.5 MG PO daily July 30, 2023 12:51pm July 31, 2023 11:43am Please note: This is to be filled with armor thyroid brand name. Patient has intolerance to generic thyroid pork. Fill, dispense as written. Diagnosis: Hypothyroidism Start: 07-30-2023 End: 07-31-2023 take 1 tablet by mouth once daily Thyroid (Pork) ([place] Thyroid) 97.5 mg tablet Discontinued 97.5 MG PO daily July 30, 2023 1:51pm July 31, 2023 12:43pm Please note: This is to be filled with armor thyroid brand name. Patient has intolerance to generic thyroid pork. Fill, dispense as written. Diagnosis: Hypothyroidism thyroid (long-term) 90 mg oral tablet (20 sources) Start: 07-31-2023 End: 09-19-2025 take 0.5 mg by mouth once daily Thyroid (Pork) 90 mg tablet Discontinued 90 mg PO daily 90 August 18, 2024 1:39pm September 19, 2025 1:29pm Please note: This is to be filled with armor thyroid brand name. Patient has intolerance to generic thyroid pork. Fill, dispense as written. Diagnosis: Hypothyroidism. Take with 12.5 mg tablet. Start: 07-31-2023 Start: 07-30-2023 End: 07-31-2023 take 1 tablet by mouth once daily Thyroid (Pork) ([place] Thyroid) 97.5 mg tablet Discontinued 97.5 mg PO daily 90 July 30, 2023 12:51pm July 31, 2023 11:43am Please note: This is to be filled with armor thyroid brand name. Patient has intolerance to generic thyroid pork. Fill, dispense as written. Diagnosis: Hypothyroidism Start: 05-15-2018 End: 07-30-2023 take 1 tablet by mouth once daily Thyroid (Pork) ([place] Thyroid) 90 mg tablet Discontinued 90 mg PO daily 90 3 August 12, 2022 12:57pm July 30, 2023 12:53pm Please note: This is to be filled with armor thyroid brand name. Patient has intolerance to generic thyroid pork. Fill, dispense as written. Diagnosis: Hypothyroidism Comment on above: Take 1 tablet by katherine th once daily. tranexamic acid 650 mg oral tablet (20 sources) Antifibrinolytic Agent Start: 05-15-20 18 End: 04-26-20 take 1 tablet by mouth every eight hours Tranexamic Acid 650 mg tablet Discontinued 650 mg PO Q8H 30 4 January 28, 2019 3:29pm April 26, 2020 1:53pm Start: 04-06-2018 End: 05-01-2018 Tranexamic Acid (Lysteda) 65 0 mg tablet Discontinued 1300 mg PO THREE TIMES A DAY 30 5 4 April 05, 2018 11:00pm April 29, 2018 11:00pm April 30, 2018 11:06pm begin at onset of menstrual bleeding End: 01-10-2025 tranexamic acid (LYSTEDA) 65 0 mg tablet Indications: Swelling of both lower extremities Take by mouth one time only. 01/10/2025 Discontinued (Other) Comment on above: Take by mouth one ti me only. Turmeric extract (8 sources) Start: 04-26-2020 End: 08-27-2021 Turmeric 400 mg capsule Discontinued mg PO April 25, 2020 11:00pm August 27, 2021 1:37pm Start: 04-26-2020 End: 08-27-2021 Turmeric Discontinued MG PO April 25, 2020 11:00pm August 27, 2021 1:37pm Start: 04-26-2020 End: 08-27-2021 Turmeric Discontinued MG PO April 26, 2020 12:00am August 27, 2021 2:37pm End: 01-10-2025 TURMERIC ORAL Take by mouth. 01/10/2025 Discontinued (Other) TURMERIC ORAL Ta ke by mouth. 0 Active Comment on above: Take by mouth. Zinc (6 sources) Start: 06-13-2022 End: 09-19-2025 zinc Discontinued PO June 122021 11:00pm September 19, 2025 1:29pm Start: 06-13-2022 zinc Active PO June 12, 2022 11:00pm Start: 06-13-2022 zinc Active PO June 13, 2022 12:00am Problems Active Problems Problem Classification Problem Date Documented Date Episodic/Chronic Anxiety disorders (11 sources) Anxiety; Translations: [Anxiety disorder, unspecified] Onset: 12-11-2015 11-26-2021 Chronic Comment on above: sees bender machine, Cardiac dysrhythmias (15 sources) Supraventricular tachycardia; Translations: [Supraventricular tachycardia] Onset: 10-18-2021 10-18-2021 Chronic Cardiac dysrhythmias (13 sources) Palpitations; Translations: [Palpitations] Onset: 10-18-2021 10-18-2021 Episodic Deficiency and other anemia (6 sources) Anemia; Translations: [Anemia, unspecified] 07-01-2022 Episodic Mood disorders (3 sources) Depressive disorder; Translations: [Depression] 03-25-2014 Chronic Nutritional deficiencies (3 sources) Vitamin D deficiency; Translations: [Vitamin D deficiency, unspecified] Onset: 08-27-2017 08-27-2017 Chronic Nutritional deficiencies (8 sources) Iron deficiency; Translations: [Iron deficiency] Onset: 08-27-2017 08-27-2017 Episodic Other diseases of veins and lymphatics (6 sources) Venous insufficiency of leg; Translations: [Venous insufficiency (chronic) (peripheral)] 09-05-2020 Episodic Other female genital disorders (8 sources) Abnormal uterine bleeding; Translations: [Abnormal uterine and vaginal bleeding, unspecified] 09-05-2020 Chronic Comment on above: failed lysteda in [facility] US and labs. fu for pap, emb, plan LAVH Other female genital disorders (2 sources) Abnormal uterine and vaginal bleeding, unspecified; Translations: [Abnormal uterine and vaginal bleeding, unspecified] Onset: 10-05-2025 Chronic Other nutritional; endocrine; and metabolic disorders (3 sources) Obese class II; Translations: [Obesity, unspecified] Onset: 10-18-2021 10-18-2021 Chronic Other nutritional; endocrine; and metabolic disorders (6 sources) Obese class I; Translations: [Obesity, unspecified] 09-05-2020 Chronic Other nutritional; endocrine; and metabolic disorders (2 sources) Obesity, unspecified; Translations: [Obesity, unspecified] Chronic Other screening for suspected conditions (not mental disorders or infectious disease) (1 source) Encounter for screening for malignant neoplasm of cervix; Translations: [Encounter for screening for malignant neoplasm of cervix] Onset: 10-05-2025 Episodic Other skin disorders (6 sources) Lichen sclerosus et atrophicus; Translations: [Lichen sclerosus et atrophicus] 08-30-2021 Chronic Comment on above: Clobetasol Spondylosis; intervertebral disc disorders; other back problems (3 sources) Degeneration of lumbar intervertebral disc; Translations: [Other intervertebral disc degeneration, lumbar region] Onset: 02-18-2017 02-18-2017 Chronic Thyroid disorders (15 sources) 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; Translations: [Other specified hypothyroidism] Onset: 12-11-2015 Resolved: 12-13-2015 11-26-2021 Chronic Past or Other Problems Problem Classification Problem Date Documented Date Episodic/Chronic Other circulatory disease (2 sources) Personal history of other diseases of the circulatory system; Translations: [Status post catheter ablation of slow pathway] Onset: 10-18-2021 Episodic Other and delivery including normal (6 sources) Normal in primigravida; Translations: [Encounter for supervision of normal first , unspecified trimester] Onset: 05-17-2011 Resolved: 07-28-2016 02-27-2012 Episodic Residual codes; unclassified (5 sources) H/O cardiac surgery; Translations: [Other specified postprocedural states] Onset: 10-18-2021 10-18-2021 Episodic Residual codes; unclassified (2 sources) Other specified postprocedural states; Translations: [Status post catheter ablation of slow pathway] Onset: 10-18-2021 Episodic Spondylosis; intervertebral disc disorders; other back problems (3 sources) Chronic low back pain; Translations: [Lumbago with sciatica, left side] Onset: 02-18-2017 02-18-2017 Episodic Results Test Name Value Interpretation Reference Range Facility PAP IG HPV APTIMA 16/18,45on 10-11-2025 ADEQ Comment Normal . [facility] Comment on above: Order Comment: Speci men Comment: [id number] Specimen Comment: No. of containers..01 ThinPrep Vial Result Comment: Sati sfactory for evaluation. Endocervical and/or squamous metaplastic cells (endocervical component) are present. Performed By: #### L 7400.0280 #### [facility] [address] [place], [place], [id number] COMM . Normal . [facility] Comment on above: Order Comment: Speci men Comment: [id number] Specimen Comment: No. of containers..01 ThinPrep Vial Performed By: #### L [id number] #### [facility] [address] [place], [address] COMMENT Comment Normal . [facility] Comment on above: Order Comment: Speci men Comment: [id number] Specimen Comment: No. of containers..01 ThinPrep Vial Result Comment: This liquid based ThinPrep(R) pap test was interpreted using the [employer](R) Genius(TM) Cervical Algorithm whole slide imaging system. Performed By: #### L 7400.0280 #### [facility] [address] [place], [place], [id number] DIAG Comment Normal . [facility] Comment on above: Order Comment: Speci men Comment: [id number] Specimen Comment: No. of containers..01 ThinPrep Vial Result Comment: NEGA TIVE FOR INTRAEPITHELIAL LESION OR MALIGNANCY. REACTIVE CELLULAR CHANGES AND/OR REPAIR ARE PRESENT. Performed By: #### L [id number] #### [facility] [address] [place], [address] HPV APTIMA, HR Negative Normal Negative [facility] Comment on above: Order Comment: Speci men Comment: [id number] Specimen Comment: No. of containers..01 ThinPrep Vial Result Comment: This nucleic acid amplification test detects fourteen high- risk HPV types (16,18,31,33,35,39,45,51,52,56,58,59,66,68) without differentiation. Performed By: #### L [id number] #### [facility] [address] [place], [place], [id number] HPV Ann Rfx Comment Normal . [facility] Comment on above: Order Comment: Speci men Comment: [id number] Specimen Comment: No. of containers..01 ThinPrep Vial Result Comment: Crit charleen not met, HPV Genotype not performed. Performed at: [facility] - [facility] [id number] Airworthiness Safety Inspector: Vianca Rodriguez MD, Phone: [phone] Performed at: =G - [facility] [address] [id number] Airworthiness Safety Inspector: Vianca Rodriguez MD, Phone: [phone] Performed By: #### L [id number] #### [facility] [address] [place], [address] PAPSMR Comment Normal . [facility] Comment on above: Order Comment: Speci men Comment: [id number] Specimen Comment: No. of containers..01 ThinPrep Vial Result Comment: The Pap smear is a screening test designed to aid in the detection of premalignant and malignant conditions of the uterine cervix. It is not a diagnostic procedure and should not be used as the sole means of detecting cervical cancer. Both false-positive and false-negative reports do occur. Performed By: #### L [id number] #### [facility] [address] [place], [place], [id number] PERFORM Comment Normal . [facility] Comment on above: Order Comment: Speci men Comment: [id number] Specimen Comment: No. of containers..01 ThinPrep Vial Result Comment: Vikas Hernandez, Glass Vial Bending Conveyor Feeder (ASCP) Performed By: #### L [id number] #### [facility] [address] [place], [place], [id number] SIGN Comment Normal . [facility] Comment on above: Order Comment: Speci men Comment: [id number] Specimen Comment: No. 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 Estephania kang MD Age/Sex: 40/F Location: [facility] Status: Signed Intake Vital Signs 09/19/25 14:26 10/05/25 13:01 Height 5 ft 4 in 5 ft 4 in Weight: 200 lb 6 oz 200 lb BMI 34.4 34.3 BP 126/85 H 129/85 H Intake Visit Reasons: Pap, EMB *per Software Administrator Required: No Is patient in pain?: No Allergies Sulfa (Sulfonamide Antibiotics) Allergy (Mild, Verified 10/05/25 13:08) rash , short of breath Medications ???Medication ???Instructions ???Recorded ???Confirmed ???Type thyroid (pork) 15 mg tablet 15 mg PO DAILY #60 tabs 07/31/23 1 12/05/24 Rx ([place] Thyroid) Is last menstrual period known: Yes Last Menstrual Period: 09/15/25 Post menopausal: No Patient : No : No PFSH PFSH Medical History SVT (supraventricular tachycardia) Obesity (BMI 30.0-34.9) Hypothyroidism Venous insufficiency of both lower extremities Vitamin D deficiency Abnormal uterine bleeding Lichen sclerosus et atrophicus Depression with anxiety Anxiety and depression Thyroid disorder Surgical History H/O hand surgery delivery delivered Family History Mother Hypertension Histoplasmosis CVA (cerebral vascular accident) Depression Anxiety Hyperlipemia Father Heart disease Diabetes Thyroid disorder Brother Thyroid disorder Grandfather Aneurysm Heart disease Myocardial infarction Grandmother Hyperlipemia Thyroid disorder Arthritis Social History number of children: 2 current occupational status: unemployed 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 Date Name GA/Weeks Outcome Route Bth Weight Gen Labor Lgth Anesthesia Del Locatn Provider FOB Unknown 2011 41 live - full term Female Dr. Jennings Unknown 2015 Steel live - full term Male [facility]ILLARY HPI Pap, EMB *per SM Details: HPI: The patient is a female presenting for a preoperative evaluation, including an endometrial biopsy and ultrasound. Menstrual History - Last menstrual period was during the last visit; lasted approximately 6-7 days. - No subsequent periods reported since the last visit. Past Surgical History - Uterus is retroverted. Subjective Sections: FMHx - Gallbladder disease (sister) ROS: Genitourinary: (+) pelvic tenderness Psychiatric: (+) anxiety PhysicalExam: GENERAL: Pleasant; in no apparent distress PULMONARY: normal inspiratory effort : - PELVIC: external genitalia normal, normal Bartholin???s glands, urethra, [place]???s glands, no vulvar lesions, no cervical lesions, good vaginal support, physiologic discharge present, normal appearing perineal body and perianal region - BIMANUAL: uterus normal size, shape, and consistency, retroverted, no adnexal masses, tender to palpation - Patient consent for exam received NEURO: alert and oriented x3 EXTREMITIES: normal Assessment/Plan: # Encounter for other preprocedural examination (Z01.818): - Conducted preoperative evaluation including Pap smear, transvaginal ultrasound scheduled for 2:30 today, and endometrial biopsy to complete required workup. - Discussed potential procedure-related complications, including bleeding, infection, and possible uterine perforation. - Educated on expected mild cramping and spotting for up to two days following the sampling. - Advised to avoid bathing for 24???48 hours to minimize infection risk. - Informed patient pathology results are anticipated within one to two weeks; will notify once received. # Abnormal uterine bleeding (N93.9): - Current evaluation includes endometrial biopsy to assess for any malignant or premalignant changes; transvaginal ultrasound also performed for further diagnostic clarification. - Explained that the procedure helps rule out (more content not included)... Normal [facility] Pelvic w/ Transvaginalon Pelvic w/ Transvaginal [facility] Imaging Services [address] [place] [id number] Pelvic w/ Transvaginal MR#: [id number] Acct: [id number] Name: GABRIELLA MADSEN Rep #: [id number] : 1985 F 40 From: Chey Roldan PCP: Dr. Jose Bell MD Status: REG CLI Study: Pelvic w/ Transvaginal Date of Exam: 10/05/25 Exam# [id number] Ordering Dr: Estephania Frost PROCEDURE: PELVIC W/ TRANSVAGINAL 10/05/2025 REASON FOR EXAM: ABNORMAL UTERINE BLEEDING TECHNIQUE: Procedure Code: [id number] Modality: US Procedure: PELVIC W/ TRANSVAGINAL FINDINGS: Uterus measures 10.5 x 6.7 x 5.1 cm. It is retroflexed position. No uterine fibroids are noted. Endometrial stripe measures 10 mm. It is hyperechoic. Nabothian cysts are noted. Right ovary measures 3.7 x 1.8 x 1.8 cm and left ovary measures 4.6 x 2.8 x 2.5 cm. There is normal bilateral symmetrical blood flow within bilateral ovaries. Left ovarian hemorrhagic/corpus luteal cyst measuring 2.3 x 2.2 x 2.1 cm. No significant free fluid within the cul-de-sac. US/Pelvic w/ Transvaginal IMPRESSION: Left ovarian hemorrhagic/corpus luteal cyst measuring 2.3 x 2.2 x 2.1 cm. No acute ovarian torsion during this exam. Thickened endometrium with likely blood product within Reading Location: [facility] CC: Dr. Jose Bell MD; Dr. Estephania Frost MD Inside Sales Director: Signed Normal [facility] Absolute lymphocyte countOrd ered By: Estephania Frost on 09-19-2025 Lymphocytes Auto (Unsp spec) [#/Vol] 1.87 10*3/uL 0.83-4.51 [facility] Absolute neutrophil countOrd ered By: Estephania Frost on 09-19-2025 Neutrophils (Bld) [#/Vol] 4.1 10*3/uL 2.0-7.7 [facility] Automated lymphocyte count a s percentage of total leukocytesOrdered By: Estephania Frost on 09-19-2025 Lymphocytes/100 WBC Auto (Unsp spec) 27.7 % 19-41 [facility] Basophil percentageOrdered B y: Estephania Frost on 09-19-2025 Basophils/100 WBC (Bld) 0.4 % 0-1 [facility] CBC W/Diff, Automatedon - 0 Absolute Lymph 1.87 X10 3/uL Normal 0.83-4.51 [facility] Comment on above: Performed By: #### L 501.9520, L100.0100 #### [facility] Laboratory [address] [place], [address] Absolute Neut 4.1 X10 3/uL Normal 2.0-7.7 [facility] Comment on above: Performed By: #### L 501.9520, L100.0100 #### [facility] [address] [place], [address] Basophils/100 WBC (Bld) 0.4 % Normal 0-1 [facility] Comment on above: Performed By: #### L 501.9520, L100.0100 #### [facility] [address] [place], [address] Eosinophils/100 WBC (Bld) 3.3 % Normal 0-5 [facility] Comment on above: Performed By: #### L 501.9520, L100.0100 #### [facility] [address] [place], [address] Erythrocyte distribution width (RBC) [Ratio] 15.2 % High 11.6-14.6 [facility] Comment on above: Performed By: #### L 501.9520, L100.0100 #### [facility] [address] [place], [address] Hematocrit (Bld) [Volume fraction] 39.8 % Normal 37-47 [facility] Comment on above: Performed By: #### L 501.9520, L100.0100 #### [facility] [address] [place], [address] Hemoglobin (Bld) [Mass/Vol] 12.8 g/dL Normal 12.0-15.0 [facility] Comment on above: Performed By: #### L 501.9520, L100.0100 #### [facility] [address] [place], [address] IG% 0.300 Normal 0.0-0.9 [facility] Comment on above: Result Comment: IG% - Immature Granulocytes (promyelocytes, myelocytes and metamyelocytes) > 1% indicates that a LEFT SHIFT is Present. Performed By: #### L 501.9520, L100.0100 #### [facility] [address] [place], [address] Lymphocytes/100 WBC (Bld) 27.7 % Normal 19-41 [facility] Comment on above: Performed By: #### L 501.9520, L100.0100 #### [facility] [address] [place], [address] MCH (RBC) [Entitic mass] 27.3 pg Normal 27.0-32.0 [facility] Comment on above: Performed By: #### L [id number], L100.0100 #### [facility] [address] [place], [address] MCHC (RBC) [Mass/Vol] 32.2 g/dL Normal 32-36 [facility] Comment on above: Performed By: #### L [id number], L100.0100 #### [facility] [address] [place], [address] MCV (RBC) [Entitic vol] 84.9 fL Normal 81-99 [facility] Comment on above: Performed By: #### L 501.9520, L100.0100 #### [facility] [address] [place], [address] Monocytes/100 WBC (Bld) 7.4 % Normal 0-10 [facility] Comment on above: Performed By: #### L 501.9520, L100.0100 #### [facility] [address] [place], [address] Neutrophils/100 WBC (Bld) 60.9 % Normal 47-70 [facility] Comment on above: Performed By: #### L 501.9520, L100.0100 #### [facility] [address] [place], [address] Nucleated RBC (Bld) [#/Vol] 0 10*3/uL Normal 0-5 [facility] Comment on above: Performed By: #### L 501.9520, L100.0100 #### [facility] [address] [place], [address] Platelet mean volume (Bld) [Entitic vol] 10.7 fL Normal 6.2-12.0 [facility] Comment on above: Performed By: #### L 501.9520, L100.0100 #### [facility] [address] [place], [address] Platelets (Bld) [#/Vol] 276 10*3/uL Normal 150-450 [facility] Comment on above: Performed By: #### L 501.9520, L100.0100 #### [facility] [address] [place], [address] RBC (Bld) [#/Vol] 4.69 10*6/uL Normal 4.2-5.4 [facility] Comment on above: Performed By: #### L 501.9520, L100.0100 #### [facility] [address] [place], [address] RDW SD 47.0 fl High 35.1-43.9 [facility] Comment on above: Performed By: #### L 501.9520, L100.0100 #### [facility] [address] [place], [address] WBC (Bld) [#/Vol] 6.7 10*3/uL Normal 4.4-11.0 [facility] Comment on above: Performed By: #### L 501.9520, L100.0100 #### [facility] [address] [place], [address] Eosinophil percentageOrdered By: Estephania Frost on 09-19-2025 Eosinophils/100 WBC (Bld) 3.3 % 0-5 [facility] Erythrocyte distribution wid th ratioOrdered By: Estephania Frost on 09-19-2025 Erythrocyte distribution width (RBC) [Ratio] 15.2 % High 11.6-14.6 [facility] Erythrocyte distribution wid th standard deviationOrdered By: Estephania Frost on 09-19-2025 Erythrocyte distribution width (RBC) [Ratio] 47.0 fl High 35.1-43.9 [facility] Hematocrit Auto (Bld) [Volum e fraction]Ordered By: Estephania Frost on 09-19-2025 Hematocrit (Bld) [Volume fraction] 39.8 % 37-47 [facility] Hemoglobin measurementOrdere d By: Estephania Frost on 09-19-2025 Hemoglobin (Bld) [Mass/Vol] 12.8 g/dL 12.0-15.0 [facility] Immature granulocytes/100 WB C Auto (Bld)Ordered By: Estephania Frost on 09-19-2025 Immature granulocytes/100 WBC (Bld) 0.300 % 0.0-0.9 [facility] Comment on above: IG% - Immature Granu locytes (promyelocytes, myelocytes and metamyelocytes) > 1% indicates that a LEFT SHIFT is Present. MCV (mean corpuscular volume ) determinationOrdered By: Estephania Frost on 09-19-2025 MCV (RBC) [Entitic vol] 84.9 fL 81-99 [facility] Mean corpuscular hemoglobin (MCH) determinationOrdered By: Estephania Frost on 09-19-2025 MCH (RBC) [Entitic mass] 27.3 pg 27.0-32.0 [facility] Mean corpuscular hemoglobin concentration (MCHC) determinationOrdered By: Estephania Frost on 09-19-2025 MCHC (RBC) [Mass/Vol] 32.2 g/dL 32-36 [facility] Mean platelet volume determi nationOrdered By: Estephania Frost on 09-19-2025 Platelet mean volume (Bld) [Entitic vol] 10.7 fL 6.2-12.0 [facility] Monocyte percentageOrdered B y: Estephania Frost on 09-19-2025 Monocytes/100 WBC (Bld) 7.4 % 0-10 [facility] Neutrophil percentageOrdered By: Estephania Frost on 09-19-2025 Neutrophils/100 WBC (Bld) 60.9 % 47-70 [facility] Nucleated red blood cell per centageOrdered By: Estephania Frost on 09-19-2025 Nucleated RBC/100 WBC (Bld) [Ratio] 0 % 0-5 [facility] Multiple Knife Edge Trimmer Operator Office Visit Reporton 09-19-2025 Multiple Knife Edge Trimmer Operator Office Visit Report [facility] [address] [place] [address], [address] [place] [address] OFFICE VISIT Date of Service: 09/19/25 MR#: [id number] Acct: [id number] Name: GABRIELLA MADSEN Rep #: [id number] : 1985 Provider: Dr. Estephania kang MD Age/Sex: 40/F Location: [facility] Status: Signed Intake Vital Signs 06/13/22 11:05 06/21/25 10:19 09/19/25 14:26 Height 5 ft 4 in 5 ft 4 in 5 ft 4 in Weight: 200 lb 6 oz BMI 34.4 BP 126/85 H Intake Visit Reasons: Hysterectomy Consult *per Software Administrator Required: No Is patient in pain?: No Allergies Sulfa (Sulfonamide Antibiotics) Allergy (Mild, Verified 09/19/25 14:28) rash , short of breath Medications ???Medication ???Instructions ???Recorded ???Confirmed ???Type thyroid (pork) 15 mg tablet 15 mg PO DAILY #60 tabs 07/31/23 1 Rx ([place] Thyroid) Is last menstrual period known: Yes Last Menstrual Period: 09/15/25 (heavy) Post menopausal: No Patient : No : No PFSH Medical History (Updated 09/21/25 @ 15:[address] Estephania Frost MD) SVT (supraventricular tachycardia) Obesity (BMI 30.0-34.9) Hypothyroidism Venous insufficiency of both lower extremities Vitamin D deficiency Abnormal uterine bleeding Lichen sclerosus et atrophicus Depression with anxiety Anxiety and depression Thyroid disorder Surgical History H/O hand surgery delivery delivered Family History Mother Hypertension Histoplasmosis CVA (cerebral vascular accident) Depression Anxiety Hyperlipemia Father Heart disease Diabetes Thyroid disorder Brother Thyroid disorder Grandfather Aneurysm Heart disease Myocardial infarction Grandmother Hyperlipemia Thyroid disorder Arthritis Social History (Updated 09/19/25 @ 14:31 by Aleshia Lam) number of children: 2 current occupational status: unemployed 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 Menorrhagia - Reports a long history of heavy menstrual bleeding, with episodes of hemorrhaging that prevent her from leaving home; the most severe episode occurred in January of this year. - Bleeding typically lasts 7 days, but can extend up to 10 days depending on severity; associated with significant clotting. - Describes recent periods as more normal but still requires a nighttime pad throughout the day due to heavy flow. - Denies significant pain during menstruation, but notes a correlation between cramping and sieve maker periods. - Experiences very painful ovulation, describing three weeks of discomfort each cycle. - Has tried Lysteda in the past without improvement. - Has a family history of heavy menstrual bleeding, with both her mother and grandmother experiencing similar issues. - Expresses a strong desire to avoid hormonal treatments and prefers not to take medication. - Has a history of using control pills, which she discontinued due to cramping and lack of efficacy in managing her symptoms. 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 - Notes that the swelling began after her second child and is worse during her menstrual cycle. - Has an upcoming appointment with a specialist in October for further evaluation. Current Medications and Supplements - None mentioned. Past Medical History - Menorrhagia - SVT - POTS - Thyroid instability Past Surgical History - Two C-sections Family History - Mother and grandmother had heavy menstrual bleeding. Social History - Denies any issues with urinary incontinence, urgency, or frequency. - Denies nausea, vomiting, or abdominal tenderness, but reports bloating. Subjective Sections: FMHx - Heavy menstrual bleeding (mother) - Heavy menstrual bleeding (grandmother) Current Meds - None PMHx - Supraventricular tachycardia - Thyroid disorder - Menorrhagia PSHx - section (two times) Social Hx - Number of children: 2 ROS: Cardiovascular: (+) palpitations, (+) lower extremity swelling Gastrointestinal: (+) abdominal bloating, (-) nausea, (-) v (more content not included)... Normal [facility] Platelet countOrdered By: Dewey Frost on 09-19-2025 Platelets (Bld) [#/Vol] 276 10*3/uL 150-450 [facility] RBC Auto (Bld) [#/Vol]Ordere d By: Estephania Frost on 09-19-2025 RBC (Bld) [#/Vol] 4.69 10*6/uL 4.2-5.4 [facility] TSH DL <= 0.005 mIU/L QnOrde red By: Estephania Frost on 09-19-2025 TSH Qn 1.040 uIU/mL 0.300-4.200 [facility] Thyroid Stim Hormone (TSH)on 09-19-2025 TSH 1.040 uIU/mL Normal 0.300-4.200 [facility] Comment on above: Performed By: #### L 501.9520, L100.0100 #### [facility] Laboratory [address] [place] [address], [id number] White blood cell (WBC) count Ordered By: Estephania Frost on 09-19-2025 WBC (Bld) [#/Vol] 6.7 10*3/uL 4.4-11.0 [facility] ECHOon 01-27-2025 Echocardiography Echocardiography Report: Transthoracic Echo [facility] Date of service: 01/27/2025 8:23:59 AM OPERATIONS OFFICER Ordering physician: EMMY ANGUIANO Indication: SVT Technologist: Joyce Herrera RDCS Interpreting physician: Claudia Hankins MD PATIENT: Name: MRS. GABRIELLA MADSEN : 1985 Age: 39 years Gender: F Previous cardiovascular interventions: Ablation Primary rhythm: sinus. Height: 162.60 cm BSA: 2.02 m Weight: 90.36 kg BMI: 34.2 kg/m Heart rate 89 bpm Blood pressure 136/81 mmHg Color Doppler was utilized to interrogate the cardiac valves assessed and spectral Doppler was utilized to determine the flow velocities and pressure gradients reported in this exam. Myocardial strain analysis was performed in this exam to aid in the assessment of cardiac function. MEASUREMENTS: Value Indexed Normal Max aortic dimension 3.1 cm Ao < 3.8 Left atrial volume 44 ml (biplane A-L) 22 ml/m Adryan <= 34 LV ID (diastole) 3.3 cm (2D) 1.62 cm/m LV ID (systole) 2.3 cm (2D) 1.14 cm/m IVS, leaflet tips 0.9 cm (2D) Posterior wall thickness 1.0 cm (2D) Left ventricular mass 82 g (2D) 41 g/m Global peak long strain -21.3 % LV stroke volume 55 ml (2D biplane) LV end diastolic volume 87 ml (2D biplane) 43.2 ml/m 29<=EDVi<62 LV end systolic volume 32 ml (2D biplane) 16.0 ml/m Ejection Fraction 63 % (2D biplane) EF > 54 FINDINGS: LEFT VENTRICLE The left ventricle is normal in size. Left ventricular systolic function is normal. Global LV myocardial strain is normal. Normal left ventricular diastolic function. Mitral annular lateral E/e': 5.5. Mitral annular septal E/e': 6.3. Wall Motion: All scored segments are normal. RIGHT VENTRICLE The right ventricle is normal in size. Right ventricular systolic function is normal. RV systolic tissue Doppler velocity is 13.0 cm/s. Tricuspid annular displacement is 2.1 cm. Estimated right ventricular systolic pressure is not reported due to an insufficient tricuspid regurgitation signal. Estimated right atrial pressure is 3 mmHg (although IVC not seen). LEFT ATRIUM The left atrial cavity is normal in size. Pulmonary Veins: The pulmonary venous pattern showed normal systolic flow. RIGHT ATRIUM The right atrial cavity is normal in size. Inferior Vena Cava: The inferior vena cava appears dilated measuring 2.3 cm. MITRAL VALVE The mitral valve leaflets are structurally normal. There is no mitral valve regurgitation. The pressure half time is 55 msec. The peak mitral E/A ratio is 1.16. The average mitral E/e' ratio is 5.9. The mitral flow deceleration time is 189 msec. TRICUSPID VALVE The tricuspid valve leaflets are structurally normal. There is trace tricuspid valve regurgitation. AORTIC VALVE The aortic valve cusps are structurally normal. There is no aortic valve regurgitation. Tricuspid aortic valve. The peak gradient is 7 mmHg (peak velocity = 129.1 cm/s). PULMONIC VALVE The pulmonic valve cusps are structurally normal. There is no pulmonic valve regurgitation. AORTA The visualized aorta is normal in size. Measurements - Mid ascending aorta 3.1 cm. PERICARDIUM There is no pericardial effusion. There is an epicardial fat pad. CONCLUSIONS: - Exam indication: SVT - The left ventricle is normal in size. Left ventricular systolic function is normal. EF = 63 5% (2D biplane) Normal left ventricular diastolic function. - The right ventricle is normal in size. Right ventricular systolic function is normal. - There are no significant valvular abnormalities. - The patient has not had a prior CC echocardiographic exam for comparison. * * * Final * * * [facility] : [id number] [facility] CNOVon 01-10-2025 CNOV Office Visit (AGCARDPOB) GABRIELLA MADSEN ([id number]) 1985 F Date Time Provider Department 01/10/25 3:20 PM EMMY ANGUIANO During your visit today, we recorded the following information about you: Pulse Blood pressure Weight 73/minute 134/80 90.4 kg Emmy Anguiano MD 01/10/2025 5:16 PM Signed PRIMARY CARE PHYSICIAN: Jose Bell [id number] [address] Patient Care Team: Jose Bell MD as PCP - General (Internal Medicine) Emmy Anguiano MD as Specialty Assistant Press Operator Offset (Cardiology) CHIEF COMPLAINT: Evaluation of arrhythmia HISTORY OF PRESENT ILLNESS: Ms. Madsen is a 39 year old female who presents today for a cardiovascular medicine follow-up visit. History copied from previous notes, edited as needed: Summary of previous notes: Ms. Madsen has a history of arrhythmia. She began experiencing symptoms of arrhythmia in about August 2018. She recalls an episode at that time where she woke up at 5:30 in the morning, felt her heart quit briefly followed by rapid heartbeats. Rapid heartbeats lasted for about 45 minutes, associated with pain in the chest and left arm, lightheadedness, trembling, feeling cold and clammy. When the episode stopped she felt the heart quit again briefly. She was very lightheaded and thought she was going to pass out. Since that time she has experienced additional episodes, initially only occasionally maybe every several months possibly even 8 months but over time has become more frequent. The last episode occurred in July 2021 and was the worst one she has ever experienced, lasting 45 to 50 minutes. She states that she has been evaluated by a paleontological helper, underwent cardiac monitoring but could not tolerate the electrode patches due to skin allergy. An episode of her symptoms was never captured while wearing a traffic monitor specialist. However, she purchased a Eterniam watch that provides cardiac monitoring including an electrogram. She states that within a couple of days she had recorded an episode of tachycardia, sometimes heart rates are as high as 180 bpm. She is not aware of any specific triggers or exacerbating factors for the arrhythmia. She has been told that it might be related to stress, or anxiety. She states she has struggled with anxiety since she was a teenager and she does not feel that these episodes are related to that issue. She is not aware of any impact with caffeine or other stimulants. She has tried to use the so-called vagal maneuvers to stop the tachycardia but these are not effective. She was prescribed metoprolol succinate to take as needed for the symptoms, but this has not been helpful. The episodes have rapid onset and rapid termination, and her description of the heart quitting at the beginning and end of the episodes is very suggestive of ectopic beats that are initiating and terminating the tachycardia. 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 It is very possible that she has AV node reentry tachycardia (AVNRT) or AV reciprocating tachycardia (AVRT) --- the latter of which would be using a concealed accessory pathway, as she does not have evidence for a manifest accessory pathway AKA Aepyu-Rhxsannfm-Ihfwp (WPW) pattern by EKG. I did advise her that if she wants to use metoprolol on an as-needed basis, that it would be best if she obtained metoprolol tartrate rather than the sustained release metoprolol succinate, as the latter has too much of a delayed onset to be very useful on an as-needed basis. Another option would be to take a medication such as a beta-juvencio (metoprolol or other type) or nondihydropyridine calcium channel juvencio (diltiazem, verapamil) on a daily basis for suppression of SVT. The other option would be catheter ablation. 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 At follow up office visit 11/26/2021 she reported ongoing fleeting palpitations, states they come and go, sometimes lasts seconds, sometimes has several palpitations a minute. Reports the palpitations are not painful however annoying. She has not taken the metoprolol, she believes her palpitations may be more related to her thyroid, she plans to follow-up with her PCP for repeat blood work and further management. She did show a few tracings that she took with her smartwatch, which showed sinus rhythm with rare PAC. She also admits to occasional, mild dizziness, she had been experiencing episodes of vertigo prior to ablation procedure. Interim History Dr. Anguiano 01/10/2025: Ms. Madsen presents for evaluation of arrhythmia, accompanied by her . She has not been seen in this office since the October 2021 (more content not included)... Normal [facility] ECG B/O W INTERP (MED OFFICE )on 01-10-2025 Sinus rhythm 84 bpm; PACs; normal conduction intervals (DE 138 ms, QRS 74 ms); QTc 432 ms [facility] Absolute lymphocyte countOrd ered By: Jose Bell on 11-06-2023 Lymphocytes Auto (Unsp spec) [#/Vol] 1.49 10*3/uL 0.83-4.51 [facility] Basophil percentageOrdered B y: Jose Bell on 11-06-2023 Basophils/100 WBC (Bld) 0.6 % 0-1 [facility] Eosinophils/100 WBC (Bld) 3.2 % 0-5 [facility] Neutrophils (Bld) [#/Vol] 2.6 10*3/uL 2.0-7.7 [facility] Neutrophils/100 WBC (Bld) 54.2 % 47-70 [facility] WBC (Bld) [#/Vol] 4.7 10*3/uL 4.4-11.0 [facility] Bilirubin [Mass/Vol] 0.40 mg/dL 0.20-1.00 [facility] Comment on above: For patients on eltr ombopag therapy, use of Dimension [place] TBIL is not recommended. Chloride [Moles/Vol] 107 mmol/L 98-107 [facility] Glucose [Mass/Vol] 93 mg/dL 74-106 [facility] Potassium [Moles/Vol] 3.8 mmol/L 3.5-5.1 [facility] Protein [Mass/Vol] 7.5 g/dL 6.4-8.2 [facility] Sodium [Moles/Vol] 137 mmol/L 136-145 [facility] Blood erythrocytes count (nu mber/volume)Ordered By: Jose Bell on 11-06-2023 RBC (Bld) [#/Vol] 4.44 10*6/uL 4.2-5.4 [facility] Blood hemoglobin measurement (mass/volume)Ordered By: Jose Bell on 11-06-2023 Hemoglobin (Bld) [Mass/Vol] 12.3 g/dL 12.0-15.0 [facility] Blood lymphocytes/100 leukoc ytesOrdered By: Jose Bell on 11-06-2023 Lymphocytes/100 WBC (Bld) 31.6 % 19-41 [facility] Blood monocytes/100 leukocyt esOrdered By: Jose Bell on 11-06-2023 Monocytes/100 WBC (Bld) 10.2 % 0-10 [facility] Blood platelet mean volumeOr dered By: Jose Bell on 11-06-2023 Platelet mean volume (Bld) [Entitic vol] 10.3 fL 6.2-12.0 [facility] Determination of erythrocyte mean corpuscular volume (MCV)Ordered By: Jose Bell on 11-06-2023 MCV (RBC) [Entitic vol] 87.2 fL 81-99 [facility] Hematocrit Auto (Bld) [Volum e fraction]Ordered By: Jose Bell on 11-06-2023 Hematocrit (Bld) [Volume fraction] 38.7 % 37-47 [facility] Laboratory - Chemistry and C hemistry - challengeOrdered By: Jose Bell on 11-06-2023 Cobalamin (Vitamin B12) [Mass/Vol] 464 pg/mL 211-911 [facility] ALP [Catalytic activity/Vol] 66 U/L 45-117 [facility] ALT [Catalytic activity/Vol] 32 U/L 13-56 [facility] CO2 [Moles/Vol] 26.0 mmol/L 21.0-32.0 [facility] Free T4 [Mass/Vol] 0.82 ng/dL 0.76-1.46 [facility] Globulin (S) [Mass/Vol] 4.1 g/dL 2.2-4.2 [facility] Magnesium [Mass/Vol] 2.1 mg/dL 1.6-2.6 [facility] Urea nitrogen/Creatinine [Mass ratio] 13.3 mg/mg 10-20 [facility] Laboratory - Hematology and Cell countsOrdered By: Jose Bell on 11-06-2023 Erythrocyte distribution width (RBC) [Entitic vol] 47.4 fL 35.1-43.9 [facility] Erythrocyte distribution width (RBC) [Ratio] 14.8 % 11.6-14.6 [facility] Immature granulocytes/100 WBC (Bld) 0.200 % 0.0-0.9 [facility] Comment on above: IG% - Immature Granu locytes (promyelocytes, myelocytes and metamyelocytes) > 1% indicates that a LEFT SHIFT is Present. MCH (RBC) [Entitic mass] 27.7 pg 27.0-32.0 [facility] Nucleated RBC/100 WBC (Bld) [Ratio] 0 % 0-5 [facility] MCHC Auto (RBC) [Mass/Vol]Or dered By: Jose Bell on 11-06-2023 MCHC (RBC) [Mass/Vol] 31.8 g/dL 32-36 [facility] No Panel InformationOrdered By: oJse Bell on 11-06-2023 Vitamin D 25-Hydroxy 79.2 ng/mL [facility] Comment on above: Vitamin D 25(OH) Sta tus Range Deficiency <20 ng/mL (50nmol/L) Insufficiency 20 - 30 ng/mL (50 - 75 nmol/L) Sufficiency 30 - 100 ng/mL (75 - 250 nmol/L) Toxicity >100 ng/mL (>250 nmol/L) Estimated GFR (MDRD) Amer 99 mL/min >60 [facility] Comment on above: GFR Calc Estimated GFR (MDRD) Non-Af Amer 82 mL/min >60 [facility] Comment on above: Non- GFR Calc Free Triiodothyronine (T3) pg/dL 4.3 pg/mL 2.18-3.98 [facility] Thyroid Stimulating Hormone (TSH) 3.06 uIU/mL 0.358-3.74 [facility] Platelets bldOrdered By: Lashae Bell on 11-06-2023 Platelets (Bld) [#/Vol] 273 10*3/uL 150-450 [facility] Serum or plasma albumin eva urement (mass/volume)Ordered By: Jose Bell on 11-06-2023 Albumin [Mass/Vol] 3.4 g/dL 3.2-5.0 [facility] Serum or plasma albumin/glob ulin mass ratioOrdered By: Jose Bell on 11-06-2023 Albumin/Globulin [Mass ratio] 0.8 {ratio} 0.9-2.4 [facility] Serum or plasma calcium eva urement (mass/volume)Ordered By: Jose Bell on 11-06-2023 Calcium [Mass/Vol] 8.5 mg/dL 8.5-10.1 [facility] Serum or plasma creatinine m easurement (mass/volume)Ordered By: Jose Bell on 11-06-2023 Creatinine [Mass/Vol] 0.83 mg/dL 0.55-1.02 [facility] Comment on above: The validity of the calculated GFR & GFRAA in patients over 70 years has not been determined. Clinical correlation is essential. Serum or plasma thyroperoxid ase antibody assay (units/volume)Ordered By: Jose Bell on 11-06-2023 TPO Ab Qn 112 [IU]/mL 0-34 [facility] Comment on above: Performed at: [employer] [address] [id number] Director: Ash Shah PhD, Phone: [phone] Serum or plasma urea nitroge n measurement (mass/volume)Ordered By: Jose Bell on 11-06-2023 Urea nitrogen [Mass/Vol] 11 mg/dL 7-18 [facility] Thin prep Papanicolaou smear with manual screeningOrdered By: Jose Bell on 11-06-2023 Thin prep Papanicolaou smear with manual screening 24 U/L 15-37 [facility] Thin prep Papanicolaou smear with manual screening 4 5-15 [facility] Absolute lymphocyte countOrd ered By: Declan Palmer on 07-30-2023 Lymphocytes Auto (Unsp spec) [#/Vol] 1.55 10*3/uL 0.83-4.51 [facility] Basophil percentageOrdered B y: Declan Palmer on 07-30-2023 Basophils/100 WBC (Bld) 0.7 % 0-1 [facility] Bilirubin [Mass/Vol] 0.30 mg/dL 0.20-1.00 [facility] Comment on above: For patients on eltr ombopag therapy, use of Dimension [place] TBIL is not recommended. Chloride [Moles/Vol] 106 mmol/L 98-107 [facility] Eosinophils/100 WBC (Bld) 4.4 % 0-5 [facility] Glucose [Mass/Vol] 97 mg/dL 74-106 [facility] Neutrophils (Bld) [#/Vol] 2.2 10*3/uL 2.0-7.7 [facility] Neutrophils/100 WBC (Bld) 48.7 % 47-70 [facility] Potassium [Moles/Vol] 4.0 mmol/L 3.5-5.1 [facility] Protein [Mass/Vol] 7.6 g/dL 6.4-8.2 [facility] Sodium [Moles/Vol] 138 mmol/L 136-145 [facility] Testosterone [Mass/Vol] 26.15 ng/dL [facility] Comment on above: CENTRAL 90% REFERENC E RANGES MALE AGE <50 197.44 - 669.58 ng/dL MALE AGE > or = 50 187.72 - 684.19 ng/dL FEMALE AGE <50 8.38 - 35.01 ng/dL FEMALE AGE > or = 50 <7.00 - 35.92 ng/dL Effective as of 06/26/21 WBC (Bld) [#/Vol] 4.5 10*3/uL 4.4-11.0 [facility] Blood erythrocytes count (nu mber/volume)Ordered By: Declan Palmer on 07-30-2023 RBC (Bld) [#/Vol] 4.57 10*6/uL 4.2-5.4 [facility] Blood hemoglobin measurement (mass/volume)Ordered By: Declan Palmer on 07-30-2023 Hemoglobin (Bld) [Mass/Vol] 13.0 g/dL 12.0-15.0 [facility] Blood lymphocytes/100 leukoc ytesOrdered By: Declan Palmer on 07-30-2023 Lymphocytes/100 WBC (Bld) 34.4 % 19-41 [facility] Blood monocytes/100 leukocyt esOrdered By: Declan Palmer on 07-30-2023 Monocytes/100 WBC (Bld) 11.6 % 0-10 [facility] Blood platelet mean volumeOr dered By: Declan Palmer on 07-30-2023 Platelet mean volume (Bld) [Entitic vol] 10.7 fL 6.2-12.0 [facility] Determination of erythrocyte mean corpuscular volume (MCV)Ordered By: Declan Palmer on 07-30-2023 MCV (RBC) [Entitic vol] 89.3 fL 81-99 [facility] Hematocrit Auto (Bld) [Volum e fraction]Ordered By: Declan Palmer on 07-30-2023 Hematocrit (Bld) [Volume fraction] 40.8 % 37-47 [facility] Laboratory - Chemistry and C hemistry - challengeOrdered By: Declan Palmer on 07-30-2023 ALP [Catalytic activity/Vol] 81 U/L 45-117 [facility] ALT [Catalytic activity/Vol] 41 U/L 13-56 [facility] CO2 [Moles/Vol] 27.0 mmol/L 21.0-32.0 [facility] Free T4 [Mass/Vol] 0.77 ng/dL 0.76-1.46 [facility] Globulin (S) [Mass/Vol] 4.0 g/dL 2.2-4.2 [facility] Urea nitrogen/Creatinine [Mass ratio] 10.7 mg/mg 10-20 [facility] Laboratory - Hematology and Cell countsOrdered By: Declan Palmer on 07-30-2023 Erythrocyte distribution width (RBC) [Entitic vol] 47.3 fL 35.1-43.9 [facility] Erythrocyte distribution width (RBC) [Ratio] 14.4 % 11.6-14.6 [facility] Immature granulocytes/100 WBC (Bld) 0.200 % 0.0-0.9 [facility] Comment on above: IG% - Immature Granu locytes (promyelocytes, myelocytes and metamyelocytes) > 1% indicates that a LEFT SHIFT is Present. MCH (RBC) [Entitic mass] 28.4 pg 27.0-32.0 [facility] Nucleated RBC/100 WBC (Bld) [Ratio] 0 % 0-5 [facility] MCHC Auto (RBC) [Mass/Vol]Or dered By: Declan Palmer on 07-30-2023 MCHC (RBC) [Mass/Vol] 31.9 g/dL 32-36 [facility] No Panel InformationOrdered By: Declan Palmer on 07-30-2023 Estimated GFR (MDRD) Amer 87 mL/min >60 [facility] Comment on above: GFR Calc Estimated GFR (MDRD) Non-Af Amer 72 mL/min >60 [facility] Comment on above: Non- GFR Calc Free Triiodothyronine (T3) pg/dL 4.3 pg/mL 2.18-3.98 [facility] Thyroid Stimulating Hormone (TSH) 7.21 uIU/mL 0.358-3.74 [facility] Vitamin D 25-Hydroxy 49.4 ng/mL [facility] Comment on above: Vitamin D 25(OH) Sta tus Range Deficiency <20 ng/mL (50nmol/L) Insufficiency 20 - 30 ng/mL (50 - 75 nmol/L) Sufficiency 30 - 100 ng/mL (75 - 250 nmol/L) Toxicity >100 ng/mL (>250 nmol/L) Platelets bldOrdered By: Luly Palmer on 07-30-2023 Platelets (Bld) [#/Vol] 282 10*3/uL 150-450 [facility] Serum or plasma albumin eva urement (mass/volume)Ordered By: Declan Palmer on 07-30-2023 Albumin [Mass/Vol] 3.6 g/dL 3.2-5.0 [facility] Serum or plasma albumin/glob ulin mass ratioOrdered By: Declan Palmer on 07-30-2023 Albumin/Globulin [Mass ratio] 0.9 {ratio} 0.9-2.4 [facility] Serum or plasma calcium eva urement (mass/volume)Ordered By: Declan Palmer on 07-30-2023 Calcium [Mass/Vol] 8.8 mg/dL 8.5-10.1 [facility] Serum or plasma cortisol jose surement (mass/volume)Ordered By: Declan Palmer on 07-30-2023 Cortisol [Mass/Vol] 13.20 ug/dL 3.44-22.45 [facility] Comment on above: Adult (AM) 5.27 - 22 .45 ug/dL Adult (PM) 3.44 - 16.76 ug/dLPlease note revised CORTISOL reference range effective 2020. Serum or plasma creatinine m easurement (mass/volume)Ordered By: Declan Palmer on 08-30-2023 Creatinine [Mass/Vol] 0.93 mg/dL 0.55-1.02 [facility] Comment on above: The validity of the calculated GFR & GFRAA in patients over 70 years has not been determined. Clinical correlation is essential. Serum or plasma estradiol (E 2) measurement (mass/volume)Ordered By: Declan Palmer on 07-30-2023 E2 [Mass/Vol] 133.0 pg/mL [facility] Comment on above: NORMAL REFERENCE RAN GES FEMALE FOLLICULAR 21.4 - 164.8 pg/mL MID-CYCLE PEAK 49.9 - 367.2 pg/mL LUTEAL 40.2 - 259.0 pg/mL POST-MENOPAUSAL ON MHT <11.0 - 462.1 pg/mL NOT ON MHT <11.0 - 58.3 pg/mL MALE <11.0 - 52.5 pg/mL NOTE:[employer] HAS CONFIRMED THE DRUG FULVETRANT (FASLODEX) MAY CAUSE FALSELY ELEVATED ESTRADIOL RESULTS WHEN USING THIS TEST METHOD. IF PATIENT IS TAKING FULVESTRANT AN ALTERNATIVE METHOD SHOULD BE USED TO DETERMINE ESTRADIOL CONCENTRATION. Serum or plasma progesterone measurement (mass/volume)Ordered By: Declan Palmer on 07-30-2023 Progesterone [Mass/Vol] 6.56 ng/mL See Comment [facility] Comment on above: Progesterone Referen ce Table: UNITS Female: Follicular 0.15 - 1.40 ng/mL Luteal 3.34 - 25.56 ng/mL Mid-luteal 4.44 - 28.03 ng/mL Postmenopausal 0.0 - 0.73 ng/mL : 1st Trimester 11.22 - 90.00 ng/mL 2nd Trimester 25.55 - 89.40 ng/mL 3rd Trimester 48.40 -422.50 ng/mL Serum or plasma thyroperoxid ase antibody assay (units/volume)Ordered By: Declan Palmer on 07-30-2023 TPO Ab Qn 136 [IU]/mL 0-34 [facility] Comment on above: Performed at: [address] [id number] Director: Ash Shah PhD, Phone: [phone] Serum or plasma urea nitroge n measurement (mass/volume)Ordered By: Declan Palmer on 07-30-2023 Urea nitrogen [Mass/Vol] 10 mg/dL 7-18 [facility] Thin prep Papanicolaou smear with manual screeningOrdered By: Declan Palmer on 07-30-2023 Thin prep Papanicolaou smear with manual screening 24 U/L 15-37 [facility] Thin prep Papanicolaou smear with manual screening 5 5-15 [facility] Iron measurement (mass/mass) on 08-08-2022 Iron (Unsp spec) [Mass/Mass] 28 ug/dL 50-170 [facility] Work Phone: Laboratory - Chemistry and C hemistry - challengeon 08-08-2022 Cobalamin (Vitamin B12) [Mass/Vol] 419 pg/mL 211-911 [facility] Work Phone: No Panel Informationon 08-08 Total Iron Binding Capacity 431 ug/dL 250-450 [facility] Work Phone: Serum or plasma folate measu rement (mass/volume)on 08-08-2022 Folate [Mass/Vol] 6.10 ng/mL 3.1-55.4 [facility] Work Phone: Serum or plasma iron saturat ion measurement (mass fraction)on 08-08-2022 Iron saturation [Mass fraction] 6.5 % 15.0-55.0 [facility] Work Phone: Absolute lymphocyte counton 06-27-2022 Lymphocytes Auto (Unsp spec) [#/Vol] 1.93 10*3/uL 0.83-4.51 [facility] Work Phone: Basophil percentageon 2021 Basophils/100 WBC (Bld) 0.4 % 0-1 [facility] Work Phone: [phone] Bilirubin [Mass/Vol] 0.40 mg/dL 0.20-1.00 [facility] Work Phone: Comment on above: For patients on eltr ombopag therapy, use of Dimension [place] TBIL is not recommended. Chloride [Moles/Vol] 106 mmol/L 98-107 [facility] Work Phone: Cholesterol [Mass/Vol] 210 mg/dL <200 [facility] Work Phone: Comment on above: <200 mg/dL Desirable 200-240 mg/dL Borderline >240 mg/dL High Risk Eosinophils/100 WBC (Bld) 2.6 % 0-5 [facility] Work Phone: Glucose [Mass/Vol] 81 mg/dL 74-106 [facility] Work Phone: Neutrophils (Bld) [#/Vol] 2.4 10*3/uL 2.0-7.7 [facility] Work Phone: Neutrophils/100 WBC (Bld) 48.2 % 47-70 [facility] Work Phone: Potassium [Moles/Vol] 3.5 mmol/L 3.5-5.1 [facility] Work Phone: Protein [Mass/Vol] 7.9 g/dL 6.4-8.2 [facility] Work Phone: Sodium [Moles/Vol] 137 mmol/L 136-145 [facility] Work Phone: Triglyceride [Mass/Vol] 78 mg/dL <199 [facility] Work Phone: Comment on above: The drugs N-Acetylcy steine and Metamizole may falsely depress this assay.Serum Triglycerides Reference Interval Normal <150 mg/dL Borderline high 150 - 199 mg/dL High 200 - 499 mg/dL Very High > or = 500 mg/dL WBC (Bld) [#/Vol] 5.0 10*3/uL 4.4-11.0 [facility] Work Phone: Blood erythrocytes count (nu mber/volume)on 06-27-2022 RBC (Bld) [#/Vol] 4.28 10*6/uL 4.2-5.4 [facility] Work Phone: [phone] Blood hemoglobin measurement (mass/volume)on 06-27-2022 Hemoglobin (Bld) [Mass/Vol] 11.5 g/dL 12.0-15.0 [facility] Work Phone: Blood lymphocytes/100 leukoc yteson 06-27-2022 Lymphocytes/100 WBC (Bld) 38.3 % 19-41 [facility] Work Phone: Blood monocytes/100 leukocyt eson 06-27-2022 Monocytes/100 WBC (Bld) 10.3 % 0-10 [facility] Work Phone: Blood platelet mean volumeon 06-27-2022 Platelet mean volume (Bld) [Entitic vol] 11.2 fL 6.2-12.0 [facility] Work Phone: Determination of erythrocyte mean corpuscular volume (MCV)on 06-27-2022 MCV (RBC) [Entitic vol] 84.6 fL 81-99 [facility] Work Phone: Hematocrit Auto (Bld) [Volum e fraction]on 06-27-2022 Hematocrit (Bld) [Volume fraction] 36.2 % 37-47 [facility] Work Phone: Laboratory - Chemistry and C hemistry - challengeon 06-27-2022 ALP [Catalytic activity/Vol] 70 U/L 45-117 [facility] Work Phone: ALT [Catalytic activity/Vol] 14 U/L 13-56 [facility] Work Phone: CO2 [Moles/Vol] 25.0 mmol/L 21.0-32.0 [facility] Work Phone: Free T4 [Mass/Vol] 0.87 ng/dL 0.76-1.46 [facility] Work Phone: Globulin (S) [Mass/Vol] 4.2 g/dL 2.2-4.2 [facility] Work Phone: Urea nitrogen/Creatinine [Mass ratio] 8.3 mg/mg 10-20 [facility] Work Phone: Laboratory - Hematology and Cell countson 06-27-2022 Erythrocyte distribution width (RBC) [Entitic vol] 46.3 fL 35.1-43.9 [facility] Work Phone: [phone] Erythrocyte distribution width (RBC) [Ratio] 15.3 % 11.6-14.6 [facility] Work Phone: [phone] Immature granulocytes/100 WBC (Bld) 0.200 % 0.0-0.9 [facility] Work Phone: [phone] Comment on above: IG% - Immature Granu locytes (promyelocytes, myelocytes and metamyelocytes) > 1% indicates that a LEFT SHIFT is Present. MCH (RBC) [Entitic mass] 26.9 pg 27.0-32.0 [facility] Work Phone: [phone] Nucleated RBC/100 WBC (Bld) [Ratio] 0 % 0-5 [facility] Work Phone: [phone] MCHC Auto (RBC) [Mass/Vol]on 06-27-2022 MCHC (RBC) [Mass/Vol] 31.8 g/dL 32-36 [facility] Work Phone: [phone] No Panel Informationon 06-27 Estimated GFR (MDRD) Amer 84 mL/min >60 [facility] Work Phone: [phone] Comment on above: GFR Calc Estimated GFR (MDRD) Non-Af Amer 69 mL/min >60 [facility] Work Phone: [phone] Comment on above: Non- GFR Calc Free Triiodothyronine (T3) pg/dL 3.8 pg/mL 2.18-3.98 [facility] Work Phone: [phone] Insulin Level 5.3 mU/L 2.6-37.6 [facility] Work Phone: [phone] Thyroid Stimulating Hormone (TSH) 2.62 uIU/mL 0.358-3.74 [facility] Work Phone: [phone] Platelets bldon 06-27-2022 Platelets (Bld) [#/Vol] 278 10*3/uL 150-450 [facility] Work Phone: [phone] Serum or plasma albumin eva urement (mass/volume)on 06-27-2022 Albumin [Mass/Vol] 3.7 g/dL 3.2-5.0 [facility] Work Phone: Serum or plasma albumin/glob ulin mass ratioon 06-27-2022 Albumin/Globulin [Mass ratio] 0.9 {ratio} 0.9-2.4 [facility] Work Phone: Serum or plasma calcium eva urement (mass/volume)on 06-27-2022 Calcium [Mass/Vol] 8.8 mg/dL 8.5-10.1 [facility] Work Phone: Serum or plasma cholesterol in HDL measurement (mass/volume)on 06-27-2022 Cholesterol in HDL [Mass/Vol] 55 mg/dL >40 [facility] Work Phone: Comment on above: The drugs N-Acetylcy steine and Metamizole may falsely depress this assay. Reference Range HDL <40 mg/dL Low HDL Cholesterol HDL >or= 60 mg/dL High HDL Cholesterol Serum or plasma cholesterol in VLDL measurement (mass/volume)on 06-27-2022 Cholesterol in VLDL [Mass/Vol] 16 mg/dL 5-40 [facility] Work Phone: Serum or plasma creatinine m easurement (mass/volume)on 06-27-2022 Creatinine [Mass/Vol] 0.96 mg/dL 0.55-1.02 [facility] Work Phone: Comment on above: The validity of the calculated GFR & GFRAA in patients over 70 years has not been determined. Clinical correlation is essential. Serum or plasma low density lipoprotein (LDL) cholesterol measurement (mass/volume)on 06-27-2022 Cholesterol in LDL [Mass/Vol] 139 mg/dL 0-130 [facility] Work Phone: Serum or plasma urea nitroge n measurement (mass/volume)on 06-27-2022 Urea nitrogen [Mass/Vol] 8 mg/dL 7-18 [facility] Work Phone: Thin prep Papanicolaou smear with manual screeningon 06-27-2022 Thin prep Papanicolaou smear with manual screening 12 U/L 15-37 [facility] Work Phone: Thin prep Papanicolaou smear with manual screening 6 5-15 [facility] Work Phone: Hemoglobin A1Con 10-20-2019 HbA1c (Bld) [Mass fraction] 111 mg/dl Normal [facility] Comment on above: Performed By: #### L TSH #### [place] [address] HbA1c (Bld) [Mass fraction] 5.5 % Normal 4.5-6.2 [facility] Comment on above: Performed By: #### L TSH #### [place] [address] Total 25-OH Vitamin Don 10-02 Total 25-OH Vitamin D 25.1 ng/mL Low 30.0-100.0 [facility] Comment on above: Performed By: #### L TSH #### [place] [address] Free T3on 10-19-2019 Free T3 [Mass/Vol] 4.0 pg/mL Normal 2.2-4.0 [facility] Comment on above: Performed By: #### L TSH #### [place] [address] Free Thyroxineon 10-19-2019 Free T4 [Mass/Vol] 0.67 ng/dL Normal 0.44-1.61 [facility] Comment on above: Performed By: #### L FT4 #### [place] [address] TSHon 10-19-2019 TSH Qn 2.17 uIU/mL Normal 0.34-4.82 [facility] Comment on above: Performed By: #### L TSH #### [place] [address] MILLY by IFA Screenon 11-10-20 18 MILLY by IFA Screen SEE BELOW Normal [facility] Comment on above: Result Comment: MILLY Negative NEGAT Normal range : negative at <1:80 serum dilution. Approximately 6% of patients with connective tissue diseases with low positive EIA values are negative by IFA. Recommend follow-up with specific antinuclear antibodies if clinically indicated. MILLY Titer Negative NEGAT Normal range : negative at <1:80 serum dilution. MILLY Pattern SEE BELOW Not applicable for negative result. Performing Laboratory: [facility] [address] [place] [address] Performed By: #### A NAX #### [address] [address] Reverse T3on 11-10-2018 Reverse T3 SEE BELOW Normal [facility] Comment on above: Result Comment: Reve rse T3 10.8 Reference range: 9.0 to 27.0 Unit: ng/dL (NOTE) INTERPRETIVE INFORMATION: Triiodothyronine, Reverse - LC-MS/MS Test developed and characteristics determined by [employer]. See Compliance Statement B: [facility]/ Performed by [employer], [address] [place] [id number] [email or web address], Mo Conley MD, Lab. Director Performing Laboratory: Performed By: #### T 3RX #### [place] [address] Total 25-OH Vitamin Don 12-0 Total 25-OH Vitamin D 25.0 ng/mL Low 30.0-100.0 [facility] Comment on above: Performed By: #### 2 5VD1 #### [address] [address] Ferritinon 11-04-2018 Ferritin [Mass/Vol] 11.80 ng/mL Normal 8.00-252.00 [facility] Comment on above: Performed By: #### F ERR #### [address] [address] Free T3on 11-04-2018 Free T3 [Mass/Vol] 2.7 pg/mL Normal 2.2-4.0 [facility] Comment on above: Performed By: #### F T3A #### [address] [address] Free Thyroxineon 11-04-2018 Free T4 [Mass/Vol] 0.46 ng/dL Normal 0.44-1.61 [facility] Comment on above: Performed By: #### L FT4 #### [facility] [address] [place], [place] [address] Iron % Saturationon 11-04-20 18 Iron % Saturation 15 % Low 20-55 [facility] Comment on above: Performed By: #### I RONS #### [facility] [address] [place], [place] [address] Iron Binding Cap. 342 ug/dL Normal 250-450 [facility] Comment on above: Performed By: #### I RONS #### [facility] [address] [place], [place] [address] Iron Serum 50 ug/dL Normal 50-170 [facility] Comment on above: Performed By: #### I RONS #### [facility] [address] [place] [address] TSHon 11-04-2018 TSH Qn 1.55 uIU/mL Normal 0.34-4.82 [facility] Comment on above: Performed By: #### L TSH #### [facility] [address] [place], [place] [address] Vital Signs Date Time Vital Sign Value Performing Clinician Faci lity 10-05-2025 13:01-0500 Body height 162.[address] Jose Bell MD Work Phone: [facility] 10-05-2025 13:01-0500 Body mass index (BMI) [Ratio] 34.3 kg/m2 Dr. Jose Bell MD Work Phone: [facility] 10-05-2025 13:01-0500 Body weight 90.[address] Jose Bell MD Work Phone: [facility] 10-05-2025 13:01-0500 Diastolic blood pressure 85 mm[Hg] Dr. Jose Bell MD Work Phone: [facility] 10-05-2025 13:01-0500 Systolic blood pressure 129 mm[Hg] Dr. Jose Bell MD Work Phone: [facility] 09-19-2025 14:26-0400 Body mass index (BMI) [Ratio] 34.4 kg/m2 Dr. Jose Bell MD Work Phone: [facility] 09-19-2025 14:26-0400 Body weight 90.[address] Jose Bell MD Work Phone: [facility] 09-19-2025 14:26-0400 Diastolic blood pressure 85 mm[Hg] Dr. Jose Bell MD Work Phone: [facility] 09-19-2025 14:26-0400 Systolic blood pressure 126 mm[Hg] Dr. Jose Bell MD Work Phone: [facility] 01-10-2025 15:15-0500 Body mass index (BMI) [Ratio] 34.19 kg/m2 Emmy Anguiano MD Work Phone: [facility] 01-10-2025 15:15-0500 Body weight 90.36 kg Emmy Anguiano MD Work Phone: [facility] 01-10-2025 15:15-0500 Diastolic blood pressure 80 mm[Hg] Emmy Anguiano MD Work Phone: [facility] 01-10-2025 15:15-0500 Heart rate 73 /min Emmy Anguiano MD Work Phone: [facility] 01-10-2025 15:15-0500 SaO2% (BldA) [Mass fraction] 99 % Emmy Anguiano MD Work Phone: [facility] 01-10-2025 15:15-0500 Systolic blood pressure 134 mm[Hg] Emmy Anguiano MD Work Phone: [facility] 06-13-2022 11:05-0400 Body height 162.[address] Jose Bell Work Phone: [facility] Work Phone: 06-13-2022 11:05-0400 Body mass index (BMI) [Ratio] 34.5 kg/m2 Dr. Jose Bell Work Phone: [facility] Work Phone: 06-13-2022 11:05-0400 Body temperature 98.9 [degF] Dr. Jose Bell Work Phone: [facility] Work Phone: 06-13-2022 11:05-0400 Body weight 91.[address] Jose Bell Work Phone: [facility] Work Phone: 06-13-2022 11:05-0400 Diastolic blood pressure 84 mm[Hg] Dr. Jose Bell Work Phone: [facility] Work Phone: 06-13-2022 11:05-0400 Heart rate 73 /min Dr. Jose Bell Work Phone: [facility] Work Phone: 06-13-2022 11:05-0400 Respiratory rate 16 /min Dr. Jose Bell Work Phone: [facility] Work Phone: 06-13-2022 11:05-0400 SaO2% (BldA) [Mass fraction] 98 % Dr. Jose Bell Work Phone: [facility] Work Phone: 06-13-2022 11:05-0400 Systolic blood pressure 146 mm[Hg] Dr. Jose Bell Work Phone: [facility] Work Phone: Encounters Encounter Date Encounter Type Care Provider Facility Start: 11-03-2025 ambulatory Jose Bell Facility :[facility] Start: 10-05-2025 ambulatory Estephania Palomares lity:[facility] Start: 10-05-2025 End: 10-05-2025 ambulatory Estephania Frost Facility:[facility] Start: 09-19-2025 End: 09-19-[address] Estephania Frost MD -Laboratory Work Phone: Start: 09-19-2025 End: 09-19-[address] Estephania Frost MD -[facility] Work Phone: Start: 09-19-2025 End: 09-19-[address] Jose Bell MD Work Phone: -[facility] Start: 09-19-2025 End: 09-19-2025 ambulatory Jose Bell Facility:[facility] Start: 01-27-2025 End: 02-07-2025 Follow-up encounter Emmy Anguiano MD Work Phone: [facility] Start: 01-27-2025 End: 01-27-2025 ambulatory JOSE BELL Facility:[facility] Start: 01-10-2025 End: 01-10-2025 Office outpatient new 45 minutes Emmy Anguiano MD Work Phone: [facility] Comment on above: SVT (supraventricula r tachycardia) (HCC) (Primary Dx); Status post catheter ablation of slow pathway; Palpitations Start: 01-10-2025 End: 01-10-2025 ambulatory EMMY ANGUIANO Facility:[facility] Start: 11-20-2023 End: 11-20-2023 ambulatory [facility] Work Phone: Start: 11-20-2023 End: 11-20-2023 Patient encounter procedure [facility] Work Phone: Start: 11-06-2023 End: 11-06-2023 ambulatory [facility] Work Phone: Start: 11-06-2023 End: 11-06-2023 Patient encounter procedure [facility]-Laboratory Work Phone: Start: 07-30-2023 End: 07-30-2023 ambulatory [facility] Work Phone: Start: 07-30-2023 End: 07-30-2023 Patient encounter procedure [facility]-Laboratory Work Phone: Start: 08-08-2022 End: 08-08-[address] Jose Bell Work Phone: [facility] Work Phone: Start: 08-08-2022 End: 08-08-[address] Jose Bell Work Phone: [facility]-Laboratory Start: 06-27-2022 End: 06-27-[address] Jose Bell Work Phone: [facility]-Laboratory Start: 06-13-2022 End: 06-13-[address] Jose Bell Work Phone: [facility] Start: 03-12-2022 ambulatory Clementina Cunha APRN.CNP Work Phone: [facility] Comment on above: Smart watch readings Procedures Date Procedure Procedure Detail Performing Clinician Start: 01-10-2025 Ecg routine ecg w/least 12 lds w/i&r Emmy Anguiano MD Work Phone: Start: 11-20-2023 US scan of thyroid Start: 01-01-2016 End: 07-28-2016 H/O: section Previous section Emmy Anguiano MD Work Phone: Plan of Treatment Date Care Activity Detail Author Start: 10-05-2025 Pelvic echography Pelvic w/ Transvag inal [facility] Start: 10-05-2025 Patient encounter procedure Registered Clinical -Ultrasound [facility] Work Phone: Start: 10-05-2025 End: 10-05-2025 Patient encounter procedure Abnormal uterine bleeding -[facility] Work Phone: Start: 10-05-2025 Liquid based cervica l cytology screening [facility] Start: 08-01-2024 Covid-19 Vaccine ( season) Covid-19 Vaccine () [facility] Start: 08-01-2024 Influenza vaccination Influenza Vacc ine (#1) [facility] Start: 08-01-2022 Influenza vaccination INFLUENZ A (Season Ended) [facility] Start: 04-01-2022 HPV TESTING HPV TESTING [facility] Start: 04-01-2022 PAP TESTING PAP TESTING [facility] Start: 04-01-2022 Screening for malign ant neoplasm of cervix Cervical Cancer Screening [facility] Start: 05-21-2019 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 MARIAH DISEASE VISIT ANNUAL PCP TEAM CHRONIC DISEASE VISIT [facility] Start: 2004 Hepatitis B Vaccine (1 of 3 - 19+ 3-dose series) Hepatitis B Vaccine (1 of 3 - 19+ 3-dose series) [facility] Start: 2004 Urine microalbumin profile [facility] Start: 2003 Annual PCP Team [employer] mariah Disease Visit Annual PCP Team Chronic Disease Visit [facility] Start: 1990 COVID-19 VACCINE (1) COVID-19 VACCIN E (1) [facility] Cytology report of Cervical or vaginal smear or scraping Cyto stain.thin prep [facility] End: 01-10-2026 Echocardiography ECHO Cardiology Routine SVT (supraventricular tachycardia) (HCC) Status post catheter ablation of slow pathway Palpitations 1 Occurrences starting 01/10/2025 until 01/10/2026 [facility] Work Phone: Comment on above: 1 Occurrences starti ng 01/10/2025 until 01/10/2026 Path report.final Dx Spec [facility] Procedure [facility] Immunizations Immunization Date Immunization Notes Care Provider Paige rodriguez 02-08-2019 influenza, seasonal, injectable Clementina Cunha APRN.CNP Work Phone: [facility] Work Phone: 02-08-2019 influenza virus vaccine, unspecified formulation Emmy Anguiano MD Work Phone: [facility] Payers Date Payer Category Payer Self-pay [id number] 2025 Medicare (Managed Care) [employer] HMO [id number] 2024 Blue Cross Blue Shield BLUE ACCE SS PPO Member Subscriber Plan / Payer (Effective 2024-Present) Name: GABRIELLA MADSEN Relation to Subscriber: Spouse Name: LENORE MADSEN Date of : 1985 Address: [address] [place] [address] [address] [place] [address] Payer ID: [id number] (NAIC) Type: PPO Address: [address] [place] [id number] 2024 Medicare [id number] 2012 Unknown MMO MMO SUPERMED PLUS [id number] 2012-Present [phone] [address] [place] [address] PPO [id number] Unknown [id number] Unknown [id number] Unknown ANTHEM [id number] Unknown [id number] Unknown [id number] Unknown [id number] Unknown [id number] Unknown [id number] Social History Date Type Detail Facility Start: 05-17-2011 End: 09-19-2025 Tobacco smoking status NHIS Never smoked tobacco [facility] Start: 05-17-2011 End: 01-10-2025 Tobacco use and exposure Smokeless tobacco non-user [facility] Start: 11-26-2021 End: 01-10-2025 Alcohol intake Current non-drinker of alcohol (finding) [facility] Start: 08-10-2021 History SDOH Alcohol Comment holiday/special occasions [facility] Start: 1985 Sex Assigned At Female C [facility] Start: 06-13-2022 End: 06-13-2022 Tobacco smoking status DEIS Unknown if ever smoked [facility] Start: 01-10-2025 History of Social function [facility] Start: 01-10-2025 Tobacco use panel [facility] Work Phone: National Score (1-10 0), lower number is lower risk 59 [facility] Start: 08-19-2021 Gender identity Identifies as female gender (finding) [facility] Start: 08-19-2021 Sexual orientation Heterosexual (matilda guerin) [facility] Goals Date Patient Goal Desired Activity /State Personal health goal Functional Status Date Assessment Result Facility 10-19-2021 Are you deaf, or do you have serious difficulty hearing No 10/19/2021 10:14 AM Mayra Hernandez RN No [facility] 10-19-2021 Are you blind, or do you have serious difficulty seeing, even when wearing glasses No 10/19/2021 10:14 AM Mayra Hernandez RN No [facility] 10-19-2021 Do you have serious difficulty walking or climbing stairs No 10/19/2021 10:14 AM Mayra Hernandez RN No [facility] 10-19-2021 Do you have difficul ty dressing or bathing No 10/19/2021 10:14 AM Mayra Hernandez RN No [facility] 10-19-2021 Because of a physica l, mental, or emotional condition, do you have difficulty doing errands alone such as visiting a physician's office or shopping No 10/19/2021 10:14 AM Mayra Hernandez RN No [facility] Mental Status Date Assessment Result Facility 10-19-2021 Because of a physica l, mental, or emotional condition, do you have serious difficulty concentrating, remembering, or making decisions No 10/19/2021 10:14 AM Mayra Hernandez RN No [facility] Clinical Notes 07-26-2016 to 09-19-2025 Note Date & Type Note Facility 09-19-2025 Progress note [facility] 09-19-2025 Evaluation note Diagnosis Onset Date Resolution Abnormal uterine bleeding chronic September 19 2:01pm Abnormal uterine bleeding chronic October 05 12:40pm [facility] Work Phone: [phone]) 388-663510-20-2025 Progress note Author Estephania Frost [facility] Note Date/Time September 19, 2025 4 :43pm [facility] [address] [place] [address], [address] [place] [address] OFFICE VISIT Date of Service: 09/19/25 MR#: [id number] Acct: [id number] Name: GABRIELLA MADSEN Rep #: [id number] : 1985 Provider: Dr. Arvind Frost MD Age/Sex: 40/F Location: [facility] Status: Signed Intake Vital Signs 06/13/22 11:05 06/21/25 10:19 09/19/25 14:26 Height 5 ft 4 in 5 ft 4 in 5 ft 4 in Weight: 200 lb 6 oz BMI 34.4 BP 126/85 H Intake Visit Reasons: Hysterectomy Consult *per Software Administrator Required: No Is patient in pain?: No Allergies Sulfa (Sulfonamide Antibiotics) Allergy (Mild, Verified 09/19/25 14:28) rash , short of breath Medications ?Medication ?Instructions ?Recorded ?Confirmed ?Type thyroid (pork) 15 mg tablet 15 mg PO DAILY #60 tabs 09/19/25 Rx ([place] Thyroid) Is last menstrual period known: Yes Last Menstrual Period: 09/15/25 (heavy) Post menopausal: No Patient : No : No PFSH Medical History (Updated 09/21/25 @ 15:[address] Estephania Frost MD) SVT (supraventricular tachycardia) Obesity (BMI 30.0-34.9) Hypothyroidism Venous insufficiency of both lower extremities Vitamin D deficiency Abnormal uterine bleeding [place] sclerosus et atrophicus Depression with anxiety Anxiety and depression Thyroid disorder Surgical History H/O hand surgery delivery delivered Family History Mother Hypertension Histoplasmosis CVA (cerebral vascular accident) Depression Anxiety Hyperlipemia Father Heart disease Diabetes Thyroid disorder Brother Thyroid disorder Grandfather Aneurysm Heart disease Myocardial infarction Grandmother Hyperlipemia Thyroid disorder Arthritis Social History (Updated 09/19/25 @ 14:31 by Aleshia Lam) number of children: 2 current occupational status: unemployed current occupation: [employer] Smoking Status: Never smoker alcohol intake: current alcohol intake frequency: holidays/special occasions only substance use type: does not use caffeine: Yes what type of physical activity do you participate in: running and weight training frequency: 3-4 times per week seatbelt use: always do you feel safe at home: Yes additional social history: [facility] Hysterectomy Consult *per Details: HPI: The patient is a 40-year-old female with a history of menorrhagia, SVT, POTS, and thyroid instability presenting for evaluation of heavy menstrual bleeding. Menorrhagia - Reports a long history of heavy menstrual bleeding, with episodes of hemorrhaging that prevent her from leaving home; the most severe episode occurred in January of this year. - Bleeding typically lasts 7 days, but can extend up to 10 days depending on severity; associated with significant clotting. - Describes recent periods as more normal but still requires a nighttime pad throughout the day due to heavy flow. - Denies significant pain during menstruation, but notes a correlation between cramping and sieve maker periods. - Experiences very painful ovulation, describing three weeks of discomfort each cycle. - Has tried Lysteda in the past without improvement. - Has a family history of heavy menstrual bleeding, with both her mother and grandmother experiencing similar issues. - Expresses a strong desire to avoid hormonal treatments and prefers not to takemedication. - Has a history of using control pills, which she discontinued due to cramping and lack of efficacy in managing her symptoms. 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 - Notes that the swelling began after her second child and is worse during her menstrual cycle. - Has an upcoming appointment with a specialist in October for further evaluation. Current Medications and Supplements - None mentioned. Past Medical History - Menorrhagia - SVT - POTS - Thyroid instability Past Surgical History - Two C-sections Family History - Mother and grandmother had heavy menstrual bleeding. Social History - Denies any issues with urinary incontinence, urgency, or frequency. - Denies nausea, vomiting, or abdominal tenderness, but reports bloating. Subjective Sections: FMHx - Heavy menstrual bleeding (mother) - Heavy menstrual bleeding (grandmother) Current Meds - None PMHx - Supraventricular tachycardia - Thyroid disorder - Menorrhagia PSHx - section (two times) Social Hx - Number of children: 2 ROS: Cardiovascular: (+) palpitations, (+) lower extremity swelling Gastrointestinal: (+) abdominal bloating, (-) nausea, (-) vomiting, (-) abdominal tenderness Genitourinary: (+) heavy menstrual bleeding, (+) prolonged menstrual bleeding, (+) menstrual clotting, (+) painful ovulation, (-) dysmenorrhea, (-) urinary incontinence, (-) urinary urgency, (-) urinary frequency Neurological: (+) dizziness, (+) lightheadedness Assessment/Plan: # Excessive and frequent menstruation with regular cycle (N92.0): - Chronic heavy menstrual bleeding with episodes of severe hemorrhage; previously trialed Lysteda without improvement. - Patient declined additional hormonal therapy; requests definitive surgical management. - Recommended laparoscopic-assisted hysterectomy with ovarian preservation, pending insurance authorization. - Ordered pelvic ultrasound to assess uterine size, fibroids, or other abnormalities and to evaluate ovarian status. - Will perform endometrial sampling to rule out hyperplasia or malignancy, and Pap test to meet preoperative requirements. - Obtaining comprehensive blood work today to update health profile. - Surgery likely scheduled within six weeks; patient expressed preference to address this before year-end for insurance purposes. - Advised typical recovery timeline: discharge same day or overnight observation, return visits at two and six weeks postoperatively, with progressive activity resumption by four weeks. # Supraventricular tachycardia (I47.10): - Longstanding supraventricular tachycardia noted; no new interventions discussed during this visit. # Postural orthostatic tachycardia syndrome [POTS] (G90.A): - In the process of formal evaluation for POTS; no updates regarding treatment from today?s visit. # Hypothyroidism, unspecified (E03.9): - History of thyroid dysfunction under ongoing surveillance; no medication adjustments addressed in this encounter. 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 Patient Instructions: - Get blood work drawn today as ordered. - Schedule a pelvic ultrasound soon; the imaging center will call you?complete it before your pre-operative visit. - Arrange an endometrial biopsy (uterine lining sampling) and a Pap smear on the same day, ideally at your pre-op appointment 2?4 weeks before surgery. - Expect the crew scheduler to contact you within one week with proposed dates once insurance preauthorization is complete. - Plan for a laparoscopic-assisted hysterectomy (uterus removed, ovaries retained) after insurance approval; most patients schedule surgery about six weeks in advance. - Prepare for minimally invasive surgery with one incision at the belly button and two in the lower abdomen; you will likely go home the same day. - Follow this recovery timeline after hysterectomy: ? By 2 weeks: resume driving and light activities. ? By 4 weeks: return to normal work and daily activities. ? By 6 weeks: no activity restrictions. Female Reproductive History Last Menstrual Period: 09/15/25 (heavy) History 3 Elective abortions Hx Para 2 Spontaneous abortions Hx # Term Pregnancies Ectopic pregnancies Hx # Pregnancies Multiple births # of living children Past Pregnancies Del. Date Name GA/Weeks Outcome Route Bth Weight Gen Labor Lgth Anesthesia Del Locatn Provider FOB Unknown 2011 41 live - full term Female Dr. Jennings Unknown 2015 Steel live - full term Male [facility] ROS Const Constitutional: Denies fatigue, weight gain or weight loss ENT ENT: Reports system reviewed and no additional complaints, except as documented Resp Resp: Denies cough or dyspnea Musc Musc: Denies arthralgias, back pain or muscle weakness Skin Skin/Breast: Denies alopecia, change in hair, dry skin, breast mass, breast pain or breast skin changes Psych Psych: Reports system reviewed and no additional complaints, except as documented Endo Endo: Denies cold intolerance, excessive sweating, heat intolerance or polydipsia Deuce/Lymph Hematologic/Lymphatic: Denies easy bleeding, Denies easy bruising and Denies lymphadenopathy Exam Const General: cooperative, healthy appearing, comfortable and no acute distress Orientation: alert HENMT Head: normal to inspection and normocephalic Ears: hearing grossly normal bilaterally and external ears normal Nose: external nose normal and nares normal Face and sinus: normal facial exam Neck Neck: normal visual inspection and no lymphadenopathy Thyroid: thyroid normal Chest Chest palpation & inspection: normal inspection of the chest Resp Effort & Inspection: normal respiratory effort Cardio Rate: regular rate GI Inspection: normal to inspection and non-distended Palpation: soft and no hepatosplenomegaly Musc Other: gross motor intact no deficits, full bilateral strength Skin General: no rashes or lesions noted Neuro General: patient alert, patient awake, moves all extremities and no focal motor deficits Motor: muscle tone normal throughout Extrem General: normal to inspection and no pedal edema Psych Appearance: grossly normal Mental Status: mental status grossly normal Affect: normal affect Speech and Movement: speech and movement normal Coding Level of Care Code Off vis,new,level 4 Diagnoses Abnormal uterine bleeding N93.9 Assessment and Plan Assessment and Plan (1) Abnormal uterine bleeding: Status: Chronic Comment: failed lysteda in past. ordered US and labs. fu for pap, emb, plan LAVH Orders: Orders CBC W/Diff, Automated 09/19/25 N93.9 - Abnormal uterine and vaginal bleeding, unspecified Thyroid Stim Hormone (TSH) 09/19/25 N93.9 - Abnormal uterine and vaginal bleeding, unspecified Pelvic w/ Transvaginal 09/19/25 N93.9 - Abnormal uterine and vaginal bleeding, unspecified Plan After discussing the patient's diagnosis and treatment plan options, patient wishes to proceed with surgical management. I have discussed with the patient the risks, benefits, and alternatives of the procedure which include but are not limited to risks of anesthesia, bleeding, infection, possible damage to bowel, bladder, or surrounding vasculature which could lead to additional surgery to evaluate any complications. Patient agrees to procedure and wishes to proceed. ACOG/uptodate references given for additional information regarding procedure. 09/21/25 1554 <Electronically signed by Estephania paez MD> Date _ Estephania Frost MD Cosigner Signature: Date (if applicable) CC: ~ [place] [facility] Work Phone: [phone] Telephone encounter Note* Telephone Encounter - Carey Valerio RN - 02/07/2025 2:43 PM EDT I called Gabriella and informed her of the echo results from Dr. Anguiano. Pt verbalized understanding, no further questions. Carey Valerio RN [facility]03-10-2025 Miscellaneous Notes* Telephone Encounter - Carey Valerio RN - 02/07/2025 2:43 PM EDT I called Gabriella and informed her of the echo results from Dr. Anguiano. Pt verbalized understanding, no further questions. Carey Valerio RN documented in this encounter[facility] History of Present illness Narrative* Emmy Anguiano MD - 01/10/2025 3:20 PM EST PRIMARY CARE PHYSICIAN: Jose Bell [id number] [address] Patient Care Team: Jose Bell MD as PCP - General (Internal Medicine) Emmy Anguiano MD as Specialty Assistant Press Operator Offset (Cardiology) CHIEF COMPLAINT: Evaluation of arrhythmia HISTORY OF PRESENT ILLNESS: Ms. Madsen is a 39 year old female who presents today for a cardiovascular medicine follow-up visit. History copied from previous notes, edited as needed: Summary of previous notes: Ms. Madsen has a history of arrhythmia. She began experiencing symptoms of arrhythmia in about August 2018. She recalls an episode at that time where she woke up at 5:30 in the morning, felt her heart quit brieflyfollowed by rapid heartbeats. Rapid heartbeats lasted for about 45 minutes, associated with pain inthe chest and left arm, lightheadedness, trembling, feeling cold and clammy. When the episode stopped she felt the heart quit again briefly. She was very lightheaded and thought she was going to pass out. Since that time she has experienced additional episodes, initially only occasionally maybe every several months possibly even 8 months but over time has become more frequent. The last episode occurred in July 2021 and was the worst one she has ever experienced, lasting 45 to 50 minutes. She states that she has been evaluated by a paleontological helper, underwent cardiac monitoring but could not tolerate the electrode patches due to skin allergy. An episode of her symptoms was never captured while wearing a traffic monitor specialist. However, she purchased a Eterniam watch that provides cardiac monitoring including an electrogram. She states that within a couple of days she had recorded an episode of tachycardia, sometimes heart rates are as high as 180 bpm. She is not aware of any specific triggers or exacerbating factors for the arrhythmia. She has been told that it might be related to stress, oranxiety. She states she has struggled with anxiety since she was a teenager and she does not feel that these episodes are related to that issue. She is not aware of any impact with caffeine or other stimulants. She has tried to use the so-called vagal maneuvers to stop the tachycardia but these arenot effective. She was prescribed metoprolol succinate to take as needed for the symptoms, but thishas not been helpful. The episodes have rapid onset and rapid termination, and her description of the heart quitting at the beginning and end of the episodes is very suggestive of ectopic beats that are initiating and terminating the tachycardia. 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 It is very possible that she has AV node reentry tachycardia (AVNRT) or AV reciprocating tachycardia (AVRT) --- the latter of which would be using a concealed accessory pathway, as she does not haveevidence for a manifest accessory pathway AKA Zkyfd-Aajeqzvos-Ygmpm (WPW) pattern by EKG. I did advise her that if she wants to use metoprolol on an as-needed basis, that it would be best if she obtained metoprolol tartrate rather than the sustained release metoprolol succinate, as the latter has too much of a delayed onset to be very useful on an as-needed basis. Another option would be to take a medication such as a beta-juvencio (metoprolol or other type) or nondihydropyridine calcium channelblocker (diltiazem, verapamil) on a daily basis for suppression of SVT. The other option would be catheter ablation. 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 At follow up office visit 11/26/2021 she reported ongoing fleeting palpitations, states they come and go, sometimes lasts seconds, sometimes has several palpitations a minute. Reports the palpitations are not painful however annoying. She has not taken the metoprolol, she believes her palpitations may be more related to her thyroid, she plans to follow-up with her PCP for repeat blood work and further management.She did show a few tracings that she took with her smartwatch, which showed sinus rhythm with rare PAC. She also admits to occasional, mild dizziness, she had been experiencing episodes of vertigo prior to ablation procedure. Interim History Dr. Anguiano 01/10/2025: Ms. Madsen presents for evaluation of arrhythmia, accompanied by her . She has not been seen in this office since the October 2021 follow-up office visit with our advanced practice nurse after she underwent SVT catheter ablation procedure 10/18/2021. At that time she was doing reasonably well, was experiencing some very brief palpitations that seemed to most likely represent ectopic beats. She was not at that point having recurrence of SVT. She reports at this visit that she had done very well for several years, no prolonged palpitations or recurrence of the SVT. However, about two weeks ago she experienced an episode that was similar to what she experienced with the SVT prior to the catheter ablation procedure. She reports she was gettingin her car, experienced what feels like air sucked out of mouth then rapid heart beats, palpitations, loss of hearing, visual darkening. Very similar to symptoms to what she experienced with the SVT in the past. The episode lasted about 20 minutes. Vagal maneuvers not effective. When it stopped the heart rate was slow, with lightheadedness. Previously she might have more severe lightheadedness or even pass out when the arrhythmia stopped but this time just severe lightheadedness. No specific trigger identified although she did admit that she has been under more stress recently. Since the arrhythmia episode she has experienced an ongoing constant dull chest pain, even up to the neck and shoulder. She states she felt something similar to this for the week or two prior to the episode. She states she has a history of pleurisy, evidently has family history of pleurisy. She also has a history of Pastora thyroiditis, she does have her thyroid function evaluated annually and is due for evaluation soon. She feels like something is not right in the neck or thyroid region. I have confirmed and edited as necessary, the PFSH and ROS obtained by others. PAST MEDICAL HISTORY Diagnosis Date Abnormal uterine bleeding Acne Anxiety Depression was on medication. 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/2021, successful catheter ablation (slow AV marco antonio pathway) SVT (supraventricular tachycardia) (HCC) symptomatic; recurrent despite medical therapy; s/p catheter ablation for inducible AVNRT 10/18/2021 Venous insufficiency Vitamin D deficiency PAST SURGICAL HISTORY Procedure Laterality Date DELIVERY ONLY 07/26/2016 , low transverse CESSAREAN DELIVERY ONLY 12/26/2011 ECHO ECHOCARDIOGRAM 08/2020 EKG 12 LEAD 05/24/2020 ELECTROCARDIOGRAM COMPLETE 05/24/2020 EPS: SVT ABLATION 10/18/2021 EP study revealed inducible AVNRT, successful catheter cryoablation of slow AV marco antonio pathway; also had nonsustained atypical atrial flutter on a few occasions on isoproterenol, not targeted for ablation; CCAG Dr. Anguiano HOLTER MONITOR 48 HR PAST SURGICAL HISTORY OF x2 excise L middle finger sebaceous cyst TOOTH EXTRACTION x4 wisdom teeth SOCIAL HISTORY Social History Tobacco Use Smoking status: Never Smokeless tobacco: Never Substance Use Topics Alcohol use: No Comment: holiday/special occasions Drug use: No FAMILY HISTORY Problem Relation Age of Onset other (Aneuyrsm's on Maternal side) Mother Hypertension Mother other (histoplasmosis) Mother Stroke Mother Depression Mother Anxiety disorder Mother Hyperlipidemia Mother Diabetes Father Borderline Thyroid Father Heart Father pericarditis; palpitations Thyroid Sister hypothyroid Heart Sister pericarditis, ? viral Hypertension Brother Thyroid Brother Alzheimer's Disease Maternal Grandmother Dementia, NOS Cerebral Embolism Maternal Grandfather age 80's cerebral anyuresm Thyroid Paternal Grandmother Heart Paternal Grandfather No Known Problems Daughter No Known Problems Son Heart Other 40 M- First Cousin ALLERGIES: ALLERGIES Allergen Reactions Sulfa (Sulfonamide * Rash, Swelling MEDICATIONS: clobetasol (TEMOVATE) 0.05 % cream Apply to affected area once daily as needed (skin condition). Ascorbic Acid 500 mg chew Take 500 mg by mouth once daily. Thyroid, Pork, (ARMOUR THYROID) 90 mg tab Take 1 tablet by mouth once daily. Review of Systems Constitutional: Positive for malaise/fatigue. Negative for chills and fever. Respiratory: Negative for cough, hemoptysis, sputum production and shortness of breath. Cardiovascular: Positive for chest pain and palpitations. Negative for orthopnea, claudication and PND. Gastrointestinal: Negative for abdominal pain, nausea and vomiting. Musculoskeletal: Negative for falls. Skin: Negative for rash. Neurological: Positive for dizziness. Negative for focal weakness, seizures and loss of consciousness. PHYSICAL EXAMINATION: BP 134/80 Pulse 73 Wt 199 lb 3.2 oz (90.4kg) SpO2 99% LMP 03/13/2017 Physical Exam Vitals reviewed. Constitutional: General: She is not in acute distress. Appearance: Normal appearance. HENT: Head: Normocephalic and atraumatic. Cardiovascular: Rate and Rhythm: Normal rate and regular rhythm. Heart sounds: Normal heart sounds, S1 normal and S2 normal. No murmur heard. No friction rub. Pulmonary: Effort: Pulmonary effort is normal. No respiratory distress. Breath sounds: Normal breath sounds. No wheezing, rhonchi or rales. Musculoskeletal: Cervical back: Neck supple. Right lower leg: No edema. Left lower leg: No edema. Skin: General: Skin is warm and dry. Neurological: General: No focal deficit present. Mental Status: She is alert and oriented to person, place, and time. Psychiatric: Mood and Affect: Mood normal. Behavior: Behavior normal. Thought Content: Thought content normal. CARDIOVASCULAR MEDICINE TESTING: Electrocardiogram: Sinus rhythm 84 bpm; PACs; normal conduction intervals (DE 138 ms, QRS 74 ms); QTc 432 ms I have personally reviewed the Electrocardiogram. I spent a total of 45 minutes on the date of the service which included preparing to see the patient, [id number] patient care, completing clinical documentation, obtaining and/or reviewing separately obtained history, performing a medically appropriate examination, counseling and educating the pat ient/family/caregiver, ordering medications, tests, or procedures, communicating with other HCPs (not separately reported), independently interpreting results (not separately reported), communicatingresults to the patient/family/caregiver, and care coordination (not separately reported). 1. SVT (supraventricular tachycardia) (HCC) - ICD9: 427.89, ICD10: I47.10 (primary diagnosis) 2. Status post catheter ablation of slow pathway - ICD9: V45.89, ICD10: Z98.890, Z86.79 3. Palpitations - ICD9: 785.1, ICD10: R00.2 IMPRESSION: Ms. 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 She did well for several years, but more recently experienced an episode of severe symptoms that was very similar to what she experienced with the SVT prior to catheter ablation. No clear triggers other than an increase in stress recently. I think it is possible that she experienced anepisode of SVT, possibly this is recurrence of the AVNRT which would be predicted to occur only 1% or less of the time after apparently successful catheter ablation. It is also possible that she experienced a different type of arrhythmia, such as atrial tachycardia. It is unlikely at her young age that she would have atrial fibrillation. In any event, documentation of the arrhythmia would be veryhelpful. She is not very enthusiastic about wearing a cardiac event monitor due to her history of having severe skin reaction to the adhesive of the monitor electrodes. She prefers to try to catch the arrhythmia on her smart watch, which is acceptable. I think at this point an echocardiogram to evaluate for structural heart disease and such would be indicated. She prefers not to take metoprolol or diltiazem at this point. It is possible that this episode of symptoms might be just a rare occurrence and not recur frequently if at all. I did discuss with her the potential value of stress management. It is interesting that she has ongoing pressure in the chest and notably a fullness or discomfort in the neck that she feels is in the region of her thyroid. I did recommend that she have evaluation by her primary care physician or occupational work experience teacher, should probably have the thyroid evaluated to make sure that there is not something going on from that standpoint. Certainly hyperthyroidism can contribute to symptoms of palpitations and tachycardia. I had a detailed discussion with Ms. Madsen and her regarding my evaluation and recommendations. After our discussion, Ms. Madsen and her expressed understanding and I answered all questions to their apparent satisfaction. She agrees to proceed as outlined. PLAN AND RECOMMENDATIONS: 1) echocardiogram to evaluate for structural heart disease, valves, etc 2) document the arrhythmia when it occurs --- she prefers to use her smartwatch, she had severe reaction to the adhesive from external cardiac monitoring in the past 3) if symptoms attributable to arrhythmia or more frequently recurrent, consider resuming metoprolol or using diltiazem for arrhythmia suppression 4) if recurrent SVT documented, consider repeat catheter ablation as an option Return if symptoms worsen or fail to improve. Emmy Anguiano MD 01/10/2025 Medical Decision Making: Problems: Moderate: 1+ chronic illnesses with change Data: Unique test result(s) reviewed: 3+ Unique test(s) ordered: 2 Risk: Moderate: Moderate risk from testing/treatment, Drug management and Decision on minor surgery w/ risk factors Medical Decision Making Level: 4 - Moderate documented in [facility] NoteHNO ID: [id number] Author: EMMY ANGUIANO MD Service: ? Author Type: Physician Type: Progress Notes Filed: 01/10/2025 17:16 Note Text: PRIMARY CARE PHYSICIAN: Jose Bell [address] [address] Patient Care Team: Jose Bell MD as PCP - General (Internal Medicine) Emmy Anguiano MD as Specialty Assistant Press Operator Offset (Cardiology) CHIEF COMPLAINT: Evaluation of arrhythmia HISTORY OF PRESENT ILLNESS: Ms. Madsen is a 39 year old female who presents today for a cardiovascular medicine follow-up visit. History copied from previous notes, edited as needed: Summary of previous notes: Ms. Madsen has a history of arrhythmia. She began experiencing symptoms of arrhythmia in about August 2018. She recalls an episode at that time where she woke up at 5:30 in the morning, felt her heart quit briefly followed by rapid heartbeats. Rapid heartbeats lasted for about 45 minutes, associated with pain in the chest and left arm, lightheadedness, trembling, feeling cold and clammy. When the episode stopped she felt the heart quit again briefly. She was very lightheaded and thought she was going to pass out. Since that time she has experienced additional episodes, initially only occasionally maybe every several months possibly even 8 months but over time has become more frequent. The last episode occurred in July 2021 and was the worst one she has ever experienced, lasting 45 to 50 minutes. She states that she has been evaluated by a paleontological helper, underwent cardiac monitoring but could not tolerate the electrode patches due to skin allergy. An episode of her symptoms was never captured while wearing a traffic monitor specialist. However, she purchased a E[employer]iam watch that provides cardiac monitoring including an electrogram. She states that within a couple of days she had recorded an episode of tachycardia, sometimes heart rates are as high as 180 bpm. She is not aware of any specific triggers or exacerbating factors for the arrhythmia. She has been told that it might be related to stress, or anxiety. She states she has struggled with anxiety since she was a teenager and she does not feel that these episodes are related to thatissue. She is not aware of any impact with caffeine or other stimulants. She has tried to use the so-called vagal maneuvers to stop the tachycardia but these are not effective. She was prescribed metoprolol succinate to take as needed for the symptoms, but this has not been helpful. The episodes have rapid onset and rapid termination, and her description of the heart quitting at the beginning and end of the episodes is very suggestive of ectopic beats that are initiating and terminating the tachycardia. 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 It is very possible that she has AV node reentry tachycardia (AVNRT) or AV reciprocating tachycardia (AVRT) --- the latter of which would be using a concealed accessory pathway, as she does not have evidence for a manifest accessory pathway AKA Wcajn-Wzkxzmgki-Johkj (WPW) pattern by EKG. I did advise her that if she wants to use metoprolol on an as-needed basis, that it would be best if she obtained metoprolol tartrate rather than the sustained release metoprolol succinate, as the latter has too much of a delayed onset to be very useful on an as-needed basis. Another option would be to take a medication such as a beta-juvencio (metoprolol or other type) or nondihydropyridine calcium channel juvencio (diltiazem, verapamil) on a daily basis for suppression of SVT. The other option would be catheter ablation. 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 At follow up office visit 11/26/2021 she reported ongoing fleeting palpitations, states they come and go, sometimes lasts seconds, sometimes has several palpitations a minute. Reports the palpitations are not painful however annoying. She has not taken the metoprolol, she believes her palpitations may be more related to her thyroid, she plans to follow-up with her PCP for repeat blood work and further management. She did show a few tracings that she took with her smartwatch, which showed sinus rhythm with rare PAC. She also admits to occasional, mild dizziness, she had been experiencing episodes of vertigo prior to ablation procedure. Interim History Dr. Anguiano 01/10/2025: Ms. Madsen presents for evaluation of arrhythmia, accompanied by her . She has not been seen in this office since the October 2021 follow-up office visit with our advanced practice nurse after she underwent SVT catheter ablation procedure 10/18/2021. At that time she was doing reasonably well, was experiencing some very brief palpitations that seemed to most likely represent ectopic beats. She (more content not included)...[facility]08-26-2016 History of Past illness Narrative* Problem Noted Date Resolved Date Term 07/26/2016 07/28/2016 Encounter for supervision of normal in third trimester 01/01/2016 07/28/2016 Overview: Boy on us steel Previous section 01/01/20162015 Overview: Declines TOLAC plans repeat at [facility] with - Acquired hypothyroidism 12/11/2015 12/13/19 16 Last Assessment & Plan: The patient was feeling depressed, having hair loss, significant weight gain, Lethargy, dry skin, constipation, and heavy irregular periods. Took a natural supplement of thyroid made of broccoli and she felt much better And periods got better, she felt much better and hair began to be used. Supervision of normal first 05/17/2011 02/27/2012 documented as of this encounter (statuses as of 03/12/2022) [facility] Onset Date Resolution Status SVT (supraventricular tachycardia) acute Depression with anxiety chronic disease manager mariah Hypothyroidism chronic Obesity (BMI 30.0-34.9) chronic disease manager [facility] Work Phone: Evaluation noteNo assessment information available [facility] Work Phone: Evaluation note* Diagnosis Establishing care with new doctor, encounter for- Primary Other reasons for seeking consultation Acquired hypothyroidism Unspecified hypothyroidism Encounter to establish care Other reasons for seeking consultation Anxiety Anxiety state, unspecified Depression Depressive disorder, not elsewhere classified SVT (supraventricular tachycardia) (HCC)- Primary Other specified cardiac dysrhythmias Status post catheter ablation of slow pathway Other postprocedural status Palpitations documented in this encounter [facility] [facility] (narrative)No reason for referral information availableKaiser Foundation Hospital Work Phone: Summary Purpose Family History No Family History Records Found Relationship Condition Age at Onset Recorded Date/T sharda mother Hypertension Unknown Histoplasmosis Unknown Cerebrovascular accident (CVA) Unknown Depression Unknown Anxiety Unknown Hyperlipidemia Unknown father Cardiac disease Unknown Diabetes mellitus Unknown Disorder of thyroid Unknown brother Disorder of thyroid Unknown grandfather Aneurysm Unknown Cardiac disease Unknown Myocardial infarction Unknown grandmother Hyperlipidemia Unknown Arthritis Unknown Advance Directives No Advanced Directives Records FoundDocuments on File Type Date Recorded Patient Crm Marketing Analyst Expl anation Advance Directive(s) 10/18/2021 7:03 AM Advance Directive Response Recorded Date/ Time Living Will No July 05, 2021 2:35pm Power of User Support Analyst Supervisor No July 05 2:35pm Advance Directive Response Recorded Date/ Time Living Will No July 05, 2021 1:35pm Power of User Support Analyst Supervisor No July 05 1:35pm Chief Complaint and Reason for Visit Chief Complaint FOLLOW UP Reason for Visit SVT (supraventricula r tachycardia) Depression with anxiety Hypothyroidism Obesity (BMI 30.0-34.9) Chief Complaint FOLLOW UP INT LABS Reason for Visit SVT (supraventricula r tachycardia) Depression with anxiety Hypothyroidism Obesity (BMI 30.0-34.9) Chief Complaint E-ORDER Chief Complaint E-ORDER NODULE Chief Complaint Admit Date Hysterectomy Consult *per August 2:01pm INT LAB ORDERS September 19, 2025 4 :02pm Pap, EMB *per October 05, 2025 1 2:40pm AUB October 05, 2025 1 :59pm Reason for Visit Admit Date Abnormal uterine bleeding September 19, 2025 2:01pm Abnormal uterine bleeding October 05, 2025 12:40pm Additional Source Comments INFORMATION SOURCE (unrecogn ized section and content) DATE CREATED AUTHOR 10/20/2019 [facility] DATE CREATED AUTHOR AUTHOR'S ORGANIZ ATION 01/12/2025 [facility] DATE CREATED AUTHOR AUTHOR'S ORGANIZ ATION 01/29/2025 [facility] DATE CREATED AUTHOR AUTHOR'S ORGANIZ ATION 10/13/2025 [facility] Source Comments (unrecognize d section and content) In the event this informatio n is protected by the Federal Confidentiality of Alcohol and Drug Abuse Patient Records regulations: The Federal rules restrict any use of the information to criminally investigate or prosecute any alcohol or drug abuse patient.[facility] Center[facility] the event this information is protected by the Federal Confidentiality of Alcohol and Drug Abuse Patient Records regulations: The Federal rules restrict any use of the information to criminally investigate or prosecute any alcohol or drug abuse patient.[facility] Center[facility] the event this information is protected by the Federal Confidentiality of Alcohol and Drug Abuse Patient Records regulations: The Federal rules restrict any use of the information to criminally investigate or prosecute any alcohol or drug abuse patient.[facility] Care Teams (unrecognized sec tion and content) Salvage Laborer Relationship Specialty Start Date End Date Jose Bell MD [address] [facility] [place] [address] PCP - General Internal Medicine 06/29/21 Maureen Gómez (Pa) [address] [facility] [place] [phone] Physician Criminal Judge Pulmonary and Critical Care Medicine 08/20/21 Larry Chakraborty [address] [facility] [address] [place] [address] Specialty Assistant Press Operator Offset Cardiology 08/20/21 Emmy Anguiano MD [address] [facility] [address] [place] [address] Specialty Assistant Press Operator Offset Cardiology 09/17/21 Team Status: Active Member Role Status Dates Alea Galarza ADJUSTER ARBITRATOR, ADJUSTER ARBITRATOR-C Family Provider Active Dr. Jose Bell MD Primary Care Provider Active Team Status: Inactive Member Role Status Dates Dr. Jose Bell MD Primary Care Provider Active Dr. Declan Palmer MD Attending Provider, Referring Provider Active Team Status: Inactive Member Role Status Dates Dr. Jose Bell MD Primary Care Provider, Other P rovider Active Dr. Declan Palmer MD Attending Provider, Referring Provider Active Team Status: Inactive Member Role Status Dates Dr. Jose Bell MD Primary Care Pro vider, Attending Provider, Referring Provider Active Salvage Laborer Relationship Specialty Start Date End Date Jose Bell MD [address] [place] [address] PCP - General Internal Medicine 06/29/21 Emmy Anguiano MD [address] [phone] Specialty Assistant Press Operator Offset Cardiology 09/17/21 Salvage Laborer Relationship Specialty Start Date End Date Jose Bell MD [address] [place] [address] PCP - General Internal Medicine 06/29/21 Emmy Anguiano MD [address] [phone] Specialty Assistant Press Operator Offset Cardiology 09/17/21 Team Status: Active Member Role/Relationship Status Dates Dr. Jose Bell MD Primary care physician Active Team Status: Inactive Member Role/Relationship Status Dates Dr. Jose Bell MD Primary care physician Active Start: September 19, 2025 End: September 19, 2025 Dr. Jose eBll MD Referring Provider Active Start: September 19, 2025 End: September 19, 2025 Dr. Estephania Frost MD Attending physician Active Start: September 19, 2025 End: September 19, 2025 Team Status: Inactive Member Role/Relationship Status Dates Dr. Jose Bell MD Primary care physician Active Start: September 19, 2025 End: September 19, 2025 Dr. Estephania Frost MD Attending physician Active Start: September 19, 2025 End: September 19, 2025 Dr. Estephania Frost MD Referring Provider Active Start: September 19, 2025 End: September 19, 2025 Team Status: Inactive Member Role/Relationship Status Dates Dr. Jose Bell MD Primary care physician Active Start: October 05, 2025 End: October 05, 2025 Dr. Jose Bell MD Referring Provider Active Start: October 05, 2025 End: October 05, 2025 Dr. Estephania Frost MD Attending physician Active Start: October 05, 2025 End: October 05, 2025 Team Status: Active Member Role/Relationship Status Dates Dr. Jose Bell MD Primary care physician Active Start: October 05, 2025 Dr. Estephania Frost MD Attending physician Active Start: October 05, 2025 Dr. Estephania Frost MD Referring Provider Active Start: October 05, 2025 Goals (unrecognized section and content) Goals may be documented in a n alternate sectionGoals may be documented in an alternate sectionGoals may be documented in an alternate sectionGoals may be documented in an alternate sectionGoals may be documented in an alternate sectionGoals may be documented in an alternate section Reason for Visit (unrecogniz ed section and content) Reason Comments CARD New Patient Consult ReEst FOR RECORDS PERTAINING TO PATIENTS WHO ARE OR HAVE BEEN ENROLLED IN A CHEMICAL DEPENDENCY/SUBSTANCEABUSE PROGRAM, SOME INFORMATION MAY BE OMITTED. This clinical summary was aggregated from multiple sources. Caution should be exercised in using it in the provision of clinical care. This summary normalizes information from multiple sources, and as a consequence, information in this document may materially change the coding, format and clinical context of patient data. In addition, data may be omitted in some cases. CLINICAL DECISIONS SHOULD BE BASED ON THE PRIMARY CLINICAL RECORDS. [employer] provides no warranty or guarantee of the accuracy or completeness of information in this document.
[2025-11-03 06:45] LABS: Internal QC Validated? YES +Cl - CLEAR BKGD
[2025-11-03 06:46] LABS: Pregnancy, Urine Negative Negative; Record Kit Lot#,Urine Preg 980607
[2025-11-03] MEDS: Lactated Ringers 1,000 ML 40 ML IV (06:52)
[2025-11-03] MEDS: metroNIDAZOLE 500 MG/100 ML BAG 100 MG IV (06:53)
[2025-11-03] MEDS: Scopolamine 1mg/72hr Patch 1 PATCH TD (06:56)
[2025-11-03 07:05] LABS: Hematocrit 40.1 % (37-47); Hemoglobin 12.9 g/dL (12.0-15.0); Mean Corp Hgb Conc 32.2 g/dL (32-36); Mean Corpuscular Volume 86.4 fL (81-99); Mean Platelet Vol. 10.7 fl (6.2-12.0); Platelet Count 239 K/mm3 (150-450); RBC Distribution Width CV 14.9 % (11.6-14.6); RBC Distribution Width SD 47.3 fl (35.1-43.9); Red Blood Count 4.64 M/mm3 (4.2-5.4); White Blood Count 5.4 K/mm3 (4.4-11.0)
--- NOTE | 2025-11-03 07:23 | PRE.ANES_ITS ---
ASA Classification* ASA Classification ASA Classification: 2 Assessment & Plan Anesthesia* Anesthesia Assessment Anesthesia Assessment: Discussed sedation and/or anesthesia options, risks, benefits, and alternatives with patient/parents/legal guardian/POA. Questions invited. The patient/parents/legal guardian/POA seems to understand and agrees to proceed with anesthesia plan. Reviewed the physical assessment, medical history, allergy history and patient home medications list prior to surgery/procedure/anesthetic and documented any changes. Performed airway and anesthesia risk assessments. Anesthesia Type Anesthesia Type: General History Source History Obtained from:: Patient and Chart Anesthesia Focused Assessment* Temperature: 98 F Pulse Rate: 72 Blood Pressure: 131/84 Respiratory Rate: 16 Pulse Ox: 100 Oxygen Delivery Method: Room Air Airway Assessment Mouth opens: >3 cm Mallampati Score: III Teeth Condition: Intact Neck Range of motion (ROM): Full ROM Labs Anesthesia Preop lab: CBC WBC, (4.4-11.0) 5.4 K/mm3 Today, 06:55 RBC, (4.2-5.4) 4.64 M/mm3 Today, 06:55 Hgb, (12.0-15.0) 12.9 g/dL Today, 06:55 Hct, (37-47) 40.1 % Today, 06:55 Plt Count, (150-450) 239 K/mm3 Today, 06:55 CHEMISTRY Potassium, (3.5-5.1) 3.8 mmol/L 11/06/23, 09:47 Sodium, (136-145) 137 mmol/L 11/06/23, 09:47 Magnesium, (1.6-2.6) 2.1 mg/dL 11/06/23, 09:47 BUN, (7-18) 11 mg/dL 11/06/23, 09:47 Creatinine, (0.55-1.02) 0.83 mg/dL 11/06/23, 09:47 Glucose, (74-106) 93 mg/dL 11/06/23, 09:47 POC Glucose, (74-106) 81 mg/dL Today, 06:53 TSH, (0.300-4.200) 1.040 uIU/mL 09/19/25, 16:14 COAG Urine Test Negative Negative Today, 06:35 Tst Clinic Negative 10/05/25, 13:08 Pre-Assessment Diagnosis/Proposed Procedure Planned Operative Procedure(s): Hysterectomy,LAVH Anesthesia History 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 When Was Last Pacemaker Check QUESTION #4 FULL TEXT: You/Your Family Experience fever (hyperthermia) with Anesthesia Last Oral Intake Last Oral intake: Last Oral Intake NPO since 19:30 11/03/25 06:45 Meds taken in AM with sips of Yes 11/03/25 06:45 water? 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 Female Yes 10/20/25 09:58 HX of Motion Sickness Yes 10/20/25 09:58 HX of N/V After Surgery Yes 10/20/25 09:58 Non-Smoker Yes 10/20/25 09:58 Duration of Surgery greater Yes 10/20/25 09:58 than 60 minutes Number of Risk Factors 5 10/20/25 09:58 PONV Score Severe Risk 10/20/25 09:58 Height & Weight Height & Weight: Anesthesia: Height & Weight Height 5 ft 4 in 11/03/25 06:45 Weight: 91.4 kg 11/03/25 06:45 Body Mass Index (BMI) 34.5 11/03/25 06:45 Respiratory Assessment Respiratory Assessment - 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 Has anyone observed you stop No 10/20/25 09:58 breathing during sleep? STOP Results Negative 10/20/25 09:58 QUESTION #5 FULL TEXT : Do you snore loudly (louder than talking or can be heard through closed doors)? 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 Specify any problems Hx of Preganancy in last 3 No 10/20/25 09:58 Months Nurse Filling Out Transfusion JZOLLINGE 10/20/25 09:58 & Questions: Date: 10/20/25 10/20/25 09:58 Time: 09:59 10/20/25 09:58 Patient unable to answer at this time (ie. 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: /Reproductive Hx- meals on wheels driver Hx Now No 10/20/25 09:58 Gestational Age (in weeks): EDC: Hx Hx Para Hx Section SAB No 10/20/25 09:58 Does the father of the baby or his family experience fever w Father of the baby Malignant Hypertension history comment Active Medications Active Medications: Current Medications Generic Name Dose Route Start Last Admin Trade Name Freq PRN Reason Stop Dose Admin Acetaminophen 1,000 mg 11/03/25 08:15 11/03/25 06:56 Acetaminophen 500 Mg Tablet PO 11/03/25 08:16 1,000 mg PREOP ONE Administration Celecoxib 400 mg 11/03/25 08:15 11/03/25 06:54 Celecoxib 200 Mg Capsule PO 11/03/25 08:16 400 mg PREOP ONE Administration Enoxaparin Sodium 40 mg 11/03/25 08:15 11/03/25 06:54 Enoxaparin 40 Mg/0.4 Ml Syringe SC 11/03/25 08:16 40 mg PREOP ONE Administration Gabapentin 600 mg 11/03/25 08:15 11/03/25 06:54 Gabapentin 600 Mg Tablet PO 11/03/25 08:16 600 mg PREOP ONE Administration Lactated Ringer's 1,000 mls @ 40 mls/hr 11/03/25 08:15 11/03/25 06:52 IV 40 mls/hr .Q25H OLIVER Administration Cefazolin Sodium 2 gm/ Sodium 110 mls @ 150 mls/hr 11/03/25 08:15 Chloride IV 11/03/25 08:58 INTRAOP ONE Metronidazole 500 mg in 100 mls @ 100 mls/hr 11/03/25 08:15 11/03/25 06:53 Flagyl IV 11/03/25 09:14 100 mls/hr INTRAOP ONE Administration Lactated Ringer's 1,000 mls @ 15 mls/hr 11/03/25 06:15 IV .Q48H OLIVER Insulin Human Lispro 0 unit 11/03/25 08:15 Insulin Lispro 100 Unit/Ml Insuln.Pen SC 11/03/25 14:15 Q4H PRN PRN BG >/= 180, SEE PROTOCOL Protocol Ondansetron HCl 4 mg 11/03/25 08:15 Ondansetron 4 Mg/2 Ml Vial IV 11/03/25 08:16 INTRAOP ONE Phenazopyridine HCl 190 mg 11/03/25 08:15 11/03/25 06:54 Phenazopyridine 95 Mg Tablet PO 11/03/25 08:16 190 mg PREOP ONE Administration Scopolamine HBr 1 patch 11/03/25 08:15 11/03/25 06:56 Scopolamine 1mg/72hr Patch TD 11/03/25 08:16 1 patch PREOP ONE Administration PFSH Medical History Wears contact lenses Wears glasses Dietary restriction Non-smoker History of edema SVT (supraventricular tachycardia) Obesity (BMI 30.0-34.9) Hypothyroidism Venous insufficiency of both lower extremities Vitamin D deficiency Abnormal uterine bleeding Lichen sclerosus et atrophicus Depression with anxiety Anxiety and depression Thyroid disorder Home Medications ?Medication ?Instructions ?Recorded ?Last Taken ?Type thyroid (pork) 15 mg tablet 15 mg PO DAILY #60 tabs 11/03/25 04:00 Rx ([place] Thyroid) NAD+ 100 mg subcut .3x week 10/2010/25/25 History primal salcedo 1 tab PO BID 10/20/25 History testosterone cypionate 100 mg/mL 4 mg IM QWEEK 5 10/25/25 History intramuscular oil Allergy/AdvReac Type Severity Reaction Status Date / Time Sulfa (Sulfonamide Allergy Mild rash , Verified 11/03/25 06:43 Antibiotics) short of breath Family History Mother Hypertension Histoplasmosis CVA (cerebral vascular accident) Depression Anxiety Hyperlipemia Father Heart disease Diabetes Thyroid disorder Brother Thyroid disorder Grandfather Aneurysm Heart disease Myocardial infarction Grandmother Hyperlipemia Thyroid disorder Arthritis Surgical History H/O hand surgery delivery delivered Social History number of children: 2 current occupational status: unemployed current occupation: [employer] Smoking Status: Never smoker alcohol intake: current alcohol intake frequency: holidays/special occasions only substance use type: does not use caffeine: Yes what type of physical activity do you participate in: running and weight training frequency: 3-4 times per week seatbelt use: always do you feel safe at home: Yes additional social history: Mauri- Deanna Review of Systems (Anesthesia) ROS Narrative System reviewed and no additional complaints, except as documented.
[2025-11-03 07:33] LABS: Magnesium 2.0 mg/dL (1.5-2.2)
[2025-11-03] MEDS: Magnesium 1 GM over 15 mins IV (07:49)
--- NOTE | 2025-11-03 08:15 | HYST_PTH ---
PATIENT: GABRIELLA MADSEN [place] [facility] [place][id number] AGE/SX: 40/F ROOM: RE11/03/[address]: Dr. Estephania Frost MD : 1985 BED: DIS: 11/03/2025 SPEC #: [id number] RECD: 11/03/25 13:25 STATUS: JESS ANNA #: [id number] CAMERON: 11/03/25 08:[address]: Estephania Frost DEPT: SURGICAL PATHOLOGY RECD BY: Rhoda Herrmann Tissues: Uterus, NOS Procedures: Surgery Specimen Level V HEADER OPERATION: ERAS, Hysterectomy, LAVH, bilateral salpingectomy, cystoscopy PRE-OP DIAGNOSIS: Abnormal uterine bleeding TISSUE SUBMITTED: A. Uterus, bilateral fallopian tubes, cervix MICROSCOPIC DIAGNOSIS A. Uterus, uterine cervix, and left and right fallopian tubes, hysterectomy and bilateral salpingectomies: - Squamous metaplasia and slight chronic cystic endocervicitis of the uterine cervix - Secretory endometrium with superficial adenomyosis of the underlying benign myometrium - Benign left and right fallopian tubes with bilateral paratubal cysts MICROSCOPIC DESCRIPTION Slides are reviewed. GROSS DESCRIPTION A. Received in formalin labeled with the patient's name and date of . Designated as uterus, bilateral fallopian tubes, cervix is a 130.3 g, 9.5 x 6.4 x 3.6 cm uterus with attached adnexa. There is a full-thickness linear incision on the anterior aspect, spanning from the cornu to the cervix. The serosa is romero-pink. The attached cervix is romero-pink to red, partially incised and measures 2.9 x 2.9 cm; the 1.1 cm os is probe patent. Mucoid containing cysts are present. The specimen is inked as follows: [id number] Opening reveals a 7.3 x 3.4 cm endometrial canal lined by pink, lush endometrium that measures up to 0.5 cm thick. The myometrium is pink and somewhat trabeculated, measuring up to 2.7 cm thick. Definitive lesions are not identified. The purple-red bilateral fallopian tubes are fimbriated and measure 6.1 x 0.8 cm (L) and 6.3 x 0.7 cm (R). Paratubal cysts are present, 0.2 cm to 0.4 cm. Lab Coordinator sections are submitted as follows: A1: Anterior cervixA2: Posterior cervixA3: Anterior endometrium and myometriumA4: Posterior endometrium and myometriumA5: Left fallopian tubeA6-A7: Right fallopian tube RI 11/03/2025 CPT:42270
--- NOTE | 2025-11-03 08:30 | HP.PCM_ITS ---
History and Physical Vital Signs 09/19/2514:26 10/05/2513:01 Height 5 ft 4 in 5 ft 4 in Weight: 200 lb 6 oz 200 lb BMI 34.4 34.3 BP 126/85 H 129/85 H Intake Visit Reasons: Pap, EMB *per Park Activities Coordinator Required: No Is patient in pain?: No Allergies Sulfa (Sulfonamide Antibiotics) Allergy (Mild, Verified 10/05/25 13:08) rash , short of breath Medications ?Medication ?Instructions ?Recorded ?Confirmed ?Type thyroid (pork) 15 mg tablet 15 mg PO DAILY #60 tabs 07/31/23 5 Rx ([place] Thyroid) Is last menstrual period known: Yes Last Menstrual Period: 09/15/25 Post menopausal: No Patient : No : No PFSH PFSH Medical History SVT (supraventricular tachycardia) Obesity (BMI 30.0-34.9) Hypothyroidism Venous insufficiency of both lower extremities Vitamin D deficiency Abnormal uterine bleeding Lichen sclerosus et atrophicus Depression with anxiety Anxiety and depression Thyroid disorder Surgical History H/O hand surgery delivery delivered Family History Mother Hypertension Histoplasmosis CVA (cerebral vascular accident) Depression Anxiety Hyperlipemia Father Heart disease Diabetes Thyroid disorder Brother Thyroid disorder Grandfather Aneurysm Heart disease Myocardial infarction Grandmother Hyperlipemia Thyroid disorder Arthritis Social History number of children: 2 current occupational status: unemployed current occupation: [employer] Smoking Status: Never smoker alcohol intake: current alcohol intake frequency: holidays/special occasions only substance use type: does not use caffeine: Yes what type of physical activity do you participate in: running and weight training frequency: 3-4 times per week seatbelt use: always do you feel safe at home: Yes additional social history: [employer] History 3 Elective abortions Hx Para 2 Spontaneous abortions Hx # Term Pregnancies Ectopic pregnancies Hx # Pregnancies Multiple births # of living children Past Pregnancies Del. Date Name GA/Weeks Outcome Route Bth Weight Infant Gen Labor Lgth Anes thesia Del Locatn Provider FOB Unknown 2011 41 live - full term C- section Female Dr. Jennings Unknown 2015 Steel live - full term C-se ction Male [facility] HPI Pap, EMB *per Details: HPI: The patient is a female presenting for a preoperative evaluation, including an endometrial biopsy and ultrasound. Menstrual History - Last menstrual period was during the last visit; lasted approximately 6-7 days. - No subsequent periods reported since the last visit. Past Surgical History - Uterus is retroverted. Subjective Sections: FMHx - Gallbladder disease (sister) ROS: Genitourinary: (+) pelvic tenderness Psychiatric: (+) anxiety PhysicalExam: GENERAL: Pleasant; in no apparent distress PULMONARY: normal inspiratory effort : - PELVIC: external genitalia normal, normal Bartholin?s glands, urethra, Ehrhardt?s glands, no vulvar lesions, no cervical lesions, good vaginal support, physiologic discharge present, normal appearing perineal body and perianal region - BIMANUAL: uterus normal size, shape, and consistency, retroverted, no adnexal masses, tender to palpation - Patient consent for exam received NEURO: alert and oriented x3 EXTREMITIES: normal Assessment/Plan: # Encounter for other preprocedural examination (Z01.818): - Conducted preoperative evaluation including Pap smear, transvaginal ultrasound scheduled for 2:30 today, and endometrial biopsy to complete required workup. - Discussed potential procedure-related complications, including bleeding, infection, and possible uterine perforation. - Educated on expected mild cramping and spotting for up to two days following the sampling. - Advised to avoid bathing for 24?48 hours to minimize infection risk. - Informed patient pathology results are anticipated within one to two weeks; will notify once received. # Abnormal uterine bleeding (N93.9): - Current evaluation includes endometrial biopsy to assess for any malignant or premalignant changes; transvaginal ultrasound also performed for further diagnostic clarification. - Explained that the procedure helps rule out serious causes and supports coverage for upcoming surgical intervention. - No additional medications or therapeutic modifications mentioned. Patient Instructions: - Drink 24 ounces of water about one hour before your 2:30 pm ultrasound to ensure proper imaging. - Expect to have your ultrasound today under a protective cover?this won?t interfere with your procedure. - After the endometrial biopsy and Pap smear, it?s normal to have some vaginal bleeding; use a sanitary pad as needed. - Avoid taking a bath for 24?48 hours after the procedure. - Pathology results typically take 1?2 weeks; we will contact you as soon as they are available. Female Reproductive History Last Menstrual Period: 09/15/25 Office Procedures Endometrial Biopsy Endometrial Biopsy Test: Yes positive, Yes Negative, Yes declined and Yes Not Applicable Consent Signed: Yes Time out checklist: patient, procedure, site marked/identified, positioning of patient, supplies available, allergies confirmed and team agrees on procedure Time out time: 13:34 tenaculum used: Yes dilator used: No Details: Cervix prepped with betadine and pipelle inserted into uterus without complication. Specimen obtained and sent to lab for analysis. All instruments removed from vagina without complications. Excellent hemostasis noted. Results POC Urine Office , Urine Negative Last Edit by Aleshia Lam on 10/05/25 13:0 8 Coding Level of Care Code Attention Nuris Diagnoses Abnormal uterine bleeding N93.9 CPT Codes Endometrial Biopsy (91113) Assessment and Plan Assessment and Plan (1) Abnormal uterine bleeding: Status: Chronic Comment: failed lysteda in past. ordered US and labs. fu for pap, emb, plan LAVH Orders: Orders POC Urine Today N93.9 - Abnormal uterine and vaginal bleeding, unspecified Endometrial Biopsy Today N93.9 - Abnormal uterine and vaginal bleeding, unspecified PAP IG HPV APTIMA 16/18,45 Today Z12.4 - Encounter for screening for malignant neoplasm of cervix After discussing the patient's diagnosis and treatment plan options, patient wishes to proceed with surgical management. I have discussed with the patient the risks, benefits, and alternatives of the procedure which include but are not limited to risks of anesthesia, bleeding, infection, possible damage to bowel, bladder, or surrounding vasculature which could lead to additional surgery to evaluate any complications. Patient agrees to procedure and wishes to proceed. ACOG/uptodate references given for additional information regarding procedure. UPDATE- I have seen the patient and performed any clinically relevant updates to the history and physical exam. Estephania Frost MD
[2025-11-03] MEDS: Cefazolin 1 GM/5 ML Vial 2 GM IV (09:57)
[2025-11-03] MEDS: Lidocaine 1% (5 ml sdv) 5 ML Vial IV (10:03)
--- NOTE | 2025-11-03 10:16 | PCM.OPRPT ---
Procedures Urinary/Genital 52xxx-59xxx: 10430 Cystoscopy Operative Report (Standard) Operative Information Date of Procedure: 11/03/25 Pre-Operative Diagnosis: see problem list Post-Operative Diagnosis: same Surgery/Procedure Performed: laparoscopic assisted vaginal hysterectomy bilateral salpingectomy cystoscopy pourer crane ladle: Yes Tawer: Dolores Ham Tasks completed by first dyer: Opening & closing, Trocar and Retracting Additional food and beverage assistant manager?: No Type of Anesthesia: General RN Documented Start/Stop Times: Operation Date: 11/03/25 08:15 Case Time Into Pre-Op 11/03/25 06:10 Out of Pre-Op 11/03/25 09:52 Anesthesia Start 11/03/25 09:57 Into Room 11/03/25 09:57 Procedure Start 11/03/25 10:24 Procedure Start Time: 10:24 Procedure Stop Time: 12:25 Select all DRAINS/GRAFTS/IMPLANTS that apply: Drains (lucio) Drain details: lucio removed at end Estimated Blood Loss: 300 Fluids Replaced: crystalloid Specimen collected: Yes Description of specimen(s) removed: uterus and tubes Description of surgery: Patient received preoperative antibiotics and SCDs were on preoperatively. Patient was taken back to the operating room and placed in the dorsal lithotomy position. General anesthesia was induced and patient was prepped and draped in normal sterile fashion. Uterine manipulator was placed inside the uterus and Lucio catheter placed in the bladder. The umbilicus was grasped with towel clamps and an intraumbilical incision was made after injecting with quarter percent Marcaine and a Veress needle entered into the abdomen confirmed to be intra-abdominal with a low opening pressure. Abdomen was insufflated with CO2 gas and the Veress needle removed and the 5 mm trocar was placed under direct visualization without complication. Right and left lower quadrants were transilluminated and injected with quarter percent Marcaine and 5 mm ports placed under direct visualization. Pelvis was well visualized see operative findings for additional information. Bilateral fallopian tubes were identified and transected with the LigaSure device across the mesosalpinx to the level of the utero-ovarian ligament which was also transected with the LigaSure device. The broad ligament was opened up by transecting the round ligament bilaterally and skeletonizing the uterine vessels bilaterally, and creating a bladder flap using the LigaSure device. The uterine arteries were transected bilaterally with good visualization of the bladder and the ureters were seen to be inferior lateral to the operative area. Attention was then paid to the vaginal portion of the procedure and the cervix was grasped with Charlene clamps and circumferentially injected with dilute vasopressin. A circumferential incision was made and the vaginal mucosa was mobilized off posteriorly and the cul-de-sac entered into sharply and a longneck speculum placed. The anterior cul-de-sac was then identified and entered into sharply. The uterosacral ligaments were clamped cut and suture ligated with 0 Monocryl bilaterally followed by the cardinal ligaments which were clamped cut and suture ligated bilaterally with 0 Monocryl. The uterus serially descended and was removed without difficulty with minimal morcellation. Pelvic sidewall pedicles were checked and noted to have excellent hemostasis. The vaginal mucosa was reapproximated incorporating the posterior peritoneum. This was reapproximated using 0 Vicryl [id number] sutures. Excellent hemostasis was noted. The cystoscopy was then performed and bilateral ureteral strong spray was noted and the bladder was noted to have no abnormality or lesions seen. Attention paid to the abdominal portion of the procedure again. The pelvis and cul-de-sac was well visualized and no significant active bleeding noted but some raw areas were seen on the peritoneum and therefore surgiflow was applied. Pressure was taken down and the areas visualized and noted of excellent hemostasis. All ports were removed under direct visualization without complication and the abdomen was desufflated of air. The instruments removed from the abdomen and the vagina vaginal sweep was negative. Port sites on the abdomen were closed with 4-0 Monocryl interrupted sutures and Steri's and windows were applied. She was awoken and taken recovery in stable condition. Surgical Findings: enlarged uterus some scarring Complications Complications: No
--- NOTE | 2025-11-03 10:17 | DCINST_ITS ---
Discharge Instructions DC O2, CPAP, BIPAP needs Home O2 Discharge instructions: No Dressing / Incision May resume sexual activity in: 6 weeks Weight Bearing Status: Full weight bearing Dressing / Incision Call your doctor if your incision/area has: Continuous Slow Oozing, Sudden Increased Bleeding, Increased Pain/ Swelling, Increased Redness and Foul Smelling Discharge Call your doctor if you observe: Fever of 101 or Higher, Using more than 1 pad per hour, Shortness of breath, Chest pain and Uncontrolled pain Suture Line Care: Avoid Pulling/Pushing and Avoid Pinching/Bending Remove Dressing in: 1 week (if present) Cleanse incision/area with: Soap & Water and Keep Dressing Clean & Dry Follow Up Care Please Follow Up With: Estephania Frost MD When: Call to make an appointment with your doctor for a postop visit in 2 and 6 weeks. Test Results: Test results from this visit will be discussed in further detail at your follow- up appointment, if applicable. Discharge Plan Admission Attending Provider: Estephania Frost Primary Care Provider: CHARLETTE BHANDARI Instructions Print Language: Liberian Discharge Orders/Prescriptions Prescriptions: New oxycodone-acetaminophen [Percocet] 5-325 mg tablet 1 tab PO Q4H PRN (Reason: pain) 7 Days Qty: 20 0RF naproxen 500 mg tablet 500 mg PO BID PRN PRN (Reason: Pain) Qty: 30 1RF No Action primal salcedo 1 tab PO BID NAD+ 100 mg subcut .3x week testosterone cypionate 100 mg/mL oil 4 mg IM QWEEK thyroid (pork) [[place] Thyroid] 15 mg tablet 15 mg PO DAILY Qty: 60 1RF Rx Instructions: Take 1/2 tab (7.5 mg) with 90 mg tab daily. BELLO. Fill with name brand only. Referrals / Follow Up: CHARLETTE BHANDARI [Other] Disposition Disposition (needs filled in before D/C Order can be placed): Home, Self Care
[2025-11-03] MEDS: fentaNYL 100 MCG/2 ML Ampul IV (10:31)
--- NOTE | 2025-11-03 12:45 | PCM.POST.ANE ---
Anesthesia: Postop Eval I Current Vital Signs Temperature: 97.9 F Pulse Rate: 88 Blood Pressure: 118/81 Respiratory Rate: 16 Pulse Ox: 98 Oxygen Delivery Method: Room Air Assessment Airway patent: Yes Spontaneous unlabored respirations: Yes Mental status: Awake and Calm nausea: No Vomiting: No Anesthesia Complication: No Fluid Hydration Crystalloid volume administer (ml): 1,400 Total IV fluid infused: 1,400 Progress Note Anesthesia document: Postop Eval 1 completed: Yes
[2025-11-03] MEDS: Ketorolac 30 MG/ML Syringe IV (13:13)
[2025-11-03] MEDS: Lactated Ringers 1,000 ML 70 ML IV ×2 (13:21→16:19)
[2025-11-03 15:46] LABS: Hematocrit 40.7 % (37-47); Hemoglobin 13.1 g/dL (12.0-15.0); Mean Corp Hgb Conc 32.2 g/dL (32-36); Mean Corpuscular Volume 86.8 fL (81-99); Mean Platelet Vol. 11.0 fl (6.2-12.0); Platelet Count 245 K/mm3 (150-450); RBC Distribution Width CV 14.9 % (11.6-14.6); RBC Distribution Width SD 47.4 fl (35.1-43.9); Red Blood Count 4.69 M/mm3 (4.2-5.4); White Blood Count 11.1 K/mm3 (4.4-11.0)
--- NOTE | 2025-11-03 16:16 | POSTOPAN2_ITS ---
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 [email or web address] Spontaneous unlabored Yes 11/03/25 12:46 BRAND MANAGER.[email or web address] respirations Mental status Awake,Calm 11/03/25 12:46 BRAND MANAGER.[email or web address] nausea No 11/03/25 12:46 BRAND MANAGER.GDOTT Vomiting No 11/03/25 12:46 BRAND MANAGER.GDOTT Anesthesia Postop Eval I: Fluid Summary Crystalloid volume administer 1,400 11/03/25 12:46 BRAND MANAGER.GDOTT (ml) Colloids volume administered ( ml) Blood Product volume administered (ml) Total IV fluid infused 1,400 11/03/25 12:46 BRAND MANAGER.GDOTT Anesthesia Postop Eval I: Summary Notes Anesthesia Complication No 11/03/25 12:46 BRAND MANAGER.GDOTT Anesthesia Complication Comment: Post-operative progress note Anesthesia: Postop Eval II Evaluation Mental status: Awake and Calm Pain Level: 0 nausea: No Vomiting: No Complications Anesthesia Complication: No
--- NOTE | 2025-11-03 16:16 | PCM.POSTANE2 ---
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 Spontaneous unlabored Yes 11/03/25 12:46 HOT PLATE [employer] PRESS [email or web address].[email or web address] respirations Mental status Awake,Calm 11/03/25 12:46 HOT PLATE [employer] PRESS [email or web address].[email or web address] nausea No 11/03/25 12:46 HOT PLATE [employer] PRESS [email or web address].[email or web address] Vomiting No 11/03/25 12:46 HOT PLATE PLYWO[employer] PRESS [email or web address].[email or web address] Anesthesia Postop Eval I: Fluid Summary Crystalloid volume administer 1,400 11/03/25 12:46 HOT PLATE [place]YWO[place] PRESS [email or web address].GDOTT (ml) Colloids volume administered ( ml) Blood Product volume administered (ml) Total IV fluid infused 1,400 11/03/25 12:46 HOT PLATE PLYWO[employer] PRESS [email or web address].[email or web address] Anesthesia Postop Eval I: Summary Notes Anesthesia Complication No 11/03/25 12:46 HOT 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
== END 2025-11-03 18:48 | disposition home or self-care (01) ==
LOC: SDC 06:05 → AC 06:06
PROVIDERS: Anesthesiology; Referring Provider Obstetrics & Gynecology; Visit Provider Obstetrics & Gynecology
PROC: 0UT9FZZ Resection of Uterus, Via Natural or Artificial Opening With Percutaneous Endoscopic Assistance (ICD-10-PCS; CPT 58571; principal; 2025-11-03 07:50)
DX: N80.03 Adenomyosis of the uterus (principal); N83.8 Other noninflammatory disorders of ovary, fallopian tube and broad ligament; N72 Inflammatory disease of cervix uteri; N93.9 Abnormal uterine and vaginal bleeding, unspecified; E03.9 Hypothyroidism, unspecified; Z79.890 Hormone replacement therapy; Z98.891 History of uterine scar from previous surgery
CPT/HCPCS: 58571; 00840; 81025; 82962; 83735; 84443; 85027; 86850; 86900; 86901; 88307; J2405; J3475